=== PATIENT | male | born 1940 | race Caucasian/White ===

== ENCOUNTER 2016-03-05 18:35 | Inpatient (IN) ==
--- NOTE | 2016-03-05 18:58 | PROVIDER DOCUMENTATION ---
HPI-Neurological Disorder - General Chief Complaint: Fall Stated Complaint: Fall,Back Pain Time Seen by Provider: 03/05/16 18:40 Source: patient, family Allergies/Adverse Reactions: Patient Allergies Allergy/AdvReac Type Severity Reaction Status Date / Time No Known Allergies Allergy Verified 03/05/16 18:50 Home Medications: Digoxin 125 mcg PO DAILY 09/07/15 Levothyroxine [Synthroid] 200 microgm PO DAILY 09/07/15 Cholecalciferol (Vitamin D3) [D3-2000] 2,000 unit PO DAILY 09/15/15 Fenofibrate 40 mg PO DAILY 09/15/15 Fluticasone 50 Mcg Nasal [place] [Flonase] 2 spray DIMITRIS BID 09/15/15 Potassium Chloride 10 meq PO DAILY 09/15/15 Furosemide [Lasix] 40 mg PO DAILY 10/18/15 Pantoprazole [Protonix] 40 mg PO DAILY@0700 10/18/15 Lactulose 15 ml PO BID 11/12/15 Phenazopyridine [Pyridium] 100 mg PO TID 11/12/15 Solifenacin [Vesicare] 5 mg PO DAILY 11/12/15 Fesoterodine Fumarate [Toviaz] 8 mg PO DAILY 03/05/16 Pyridostigmine [Mestinon] 60 mg PO Q8HR 03/05/16 - History of Present Illness-Neuro Nature of Presenting Problem: 75 year old WM presents for the 2nd time in 3 days. per pt and who is primary caregiver, pt was found on the floor by . pt reports he put up his life chair in an attempt to walk and slid out of the chair onto the floor. reports she was unable to get him up so she contacted EMS. pt reports he is unable to take his medications because he feels confused, reports he is currently under the care of a neurologist and being evaluated for myasthenia gravis. Review of Systems - Adult - REVIEW OF SYSTEMS - ADULT Constitutional: reports: no symptoms reported. denies: chills, fever, fatique Eyes: reports: no symptoms reported. denies: discharge, decreased vision, eye pain, redness Ears, Nose, Mouth & Throat: reports: no symptoms reported. denies: ear discharge, ear pain, nose pain, loose teeth, throat pain, throat swelling Cardiovascular: reports: no symptoms reported. denies: chest pain, palpitations , syncope Respiratory: reports: no symptoms reported. denies: chronic cough, cough, shortness of breath, wheezing Gastrointestinal: reports: no symptoms reported. denies: abdominal pain, diarrhea, nausea, vomiting Genitourinary: reports: no symptoms reported. denies: dysuria, hematuria, urgency Musculoskeletal: reports: see HPI, neck pain. denies: bone pain, joint pain, joint swelling Integumentary: reports: no symptoms reported. denies: hives, itching, skin sores/ulcer Neurological: reports: see HPI, other (confusion). denies: ataxia, dizziness/ vertigo, headache/migraines, loss of balance, numbness, paresthesia, seizure, slurred speech, syncope Psychiatric: reports: no symptoms reported Endocrine: reports: no symptoms reported Hematologic/Lymphatic: reports: no symptoms reported Allergic/Immunologic: reports: no symptoms reported All Other Systems: Reviewed and Negative Past History - Adult - PAST MEDICAL HISTORY-ADULT Review of Records: reports: Old Records Reviewed, Nursing Assessment Review, Medications Reviewed, Social history reviewed & non-contributory. Major Childhood Illnesses: reports: denies history Cardiovascular: reports: A-Fib, CAD, HTN, pacemaker Respiratory: reports: sleep apnea Gastrointestinal: reports: denies history Obstetrical/Gynecological: reports: denies history Genitourinary: reports: chronic UTI's Musculoskeletal: reports: denies history Neurological: reports: CVA, TIA, other (myasthenia gravis) Psychiatric: reports: depression Endocrine/Immune: reports: Diabetes, thyroid disorder Diabetes Type: Type 2 Diabetes controlled by:: Insulin Dependent Other Conditions: reports: denies history - PRIOR SURGERIES/PROCEDURES Surgical/Procedure History: reports: appendectomy, cardiac stent, pacemaker, tonsillectomy, hernia repair - IMMUNIZATION STATUS Childhood Immunizations: See Nurse Assessment Flu Vaccine: See Nurse Assessment - FAMILY HISTORY Family History: reviewed, not pertinent - SOCIAL HISTORY Smoking: denies Substance Use: none/never Alcohol Use Frequency: never Physical Exam- Neurological - Physical Exam-Neuro Initial Vital Signs Reviewed: Yes General Appearance: appears well, alert, no apparent distress, lethargic. negative: slow to respond, obtunded, combative Eye Exam: bilateral eye: normal inspection, PERRL, EOMI HENMT: normocephalic/atraumatic, moist mucous membranes, normal ENT inspection, TMs normal, pharynx normal. negative: TM abnormal, TM obscurred by cerumen, frontal tenderness, maxillary tenderness Head Injury: no evidence of injury. negative: active bleeding, Andrea's Sign, contusions, ecchymosis, flap, lacerations, raccoon eyes, swelling, tenderness Neck: full range of motion, supple, normal inspection, C-spine tenderness. negative: non-tender, limited range of motion, tender lateral, tender midline Respiratory: chest non-tender, lungs clear, normal breath sounds, no pleuratic chest pain, no respiratory distress, no accessory muscle use. negative: respiratory distress, decreased breath sounds, accessory muscle use, crackles, rales, rhonchi, stridor, wheezing Cardiovascular: normal peripheral pulses, regular rate, rhythm, no edema, no gallop, no JVD, no murmur Abdominal Exam: normal bowel sounds, non tender, soft, no organomegaly, no pulsatile mass. negative: distended, guarding, rigid, rebound, tenderness, McBurney's point tenderness, Wheeler's sign, obturator sign, psoas, Rovsing's sign Lymphatic: no adenopathy Peripheral Pulses: radial (R): 3+, radial (L): 3+, dorsalis-pedis (R): 3+, dorsalis-pedis (L): 3+ Extremity: normal range of motion, non-tender, normal gait, normal inspection, no pedal edema, no calf tenderness, normal capillary refill, pelvis stable. 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 negative: abnormal eye position , abnormal gag reflex, abnormal pupil position, abnormal speech, facial asymmetry, facial droop, facial paresthesias, facial weakness, gaze palsy, tongue deviation to R, tongue deviation to L Coordination/Gait: normal finger to nose, normal gait, negative Romberg's sign, abnormal gait (at baseline, reports he walks with a walker.) Motor/Sensory: no motor deficit, no sensory deficit, no pronator drift, negative Babinski's sign. negative: weak motor strength RUE, weak motor strength LUE, weak motor strength RLE, weak motor strength LLE Neurologic: grossly normal, no motor/sensory deficits, abnormal gait. negative : aphasia, EOM palsy, facial droop, focal weakness, motor weakness, sensory deficit Integumentary: normal color, normal turgor, warm/dry. negative: petechiae, purpura, rash Psych/Mental Status: AL, normal mood/affect, normal thought content, normal thought process, oriented x 3 - Glascow Coma Scale Best Eye Response: (4) open spontaneously Best Verbal Response: (4) confused conversation Best Motor Response: (6) obeys commands Total Glascow Score: 14 Progress - PLAN OF CARE/RESULTS Progress/Plan/Lab Results: Vital Signs - 24 hr 03/05/16 18:37 Pulse Rate 90 Respiratory 18 Rate Blood Pressure 164/105 O2 Sat by Pulse 95 Oximetry Orders Category Date Time Status Cardiac Monitoring DIRECTED Care 03/05/16 18:55 Active Finger Stick Blood Sugar (ED) DIRECTED Care 03/05/16 18:55 Active Saline Loc NOW Care 03/05/16 18:55 Active HEAD/C-SPINE W/O CONTRAST [CT] Stat Exams 03/05/16 18:57 Draft cxr [CHEST-2 VIEWS] [RAD] Stat Exams 03/05/16 18:56 Taken ABG [RESP] Routine Lab 03/05/16 19:45 Completed ALCOHOL BLOOD Stat Lab 03/05/16 20:08 Completed CBC WITH ELECTRONIC DIFF [HEME] Stat Lab 03/05/16 20:08 Completed CK PROFILE [SP CHEM] Stat Lab 03/05/16 20:08 Completed COMPREHENSIVE METABOLIC PANEL [CHEM] Stat Lab 03/05/16 20:08 Completed DIGOXIN [TDM] Stat Lab 03/05/16 20:08 Received PROTIME WITH INR [COAG] Stat Lab 03/05/16 20:08 Completed PTT [COAG] Stat Lab 03/05/16 20:08 Completed TROPONIN T Stat Lab 03/05/16 20:08 Completed URINALYSIS W/POSS RFLX CULT [URINALYSIS] Stat Lab 03/05/16 21:11 Completed URINE DRUG SCREEN Stat Lab 03/05/16 21:11 Completed Pulse Oximetry Stat Oth 03/05/16 18:55 Active EKG [EKG] Stat Ther 03/05/16 18:55 Ordered Laboratory Tests 03/05/16 03/05/16 03/05/16 19:45 20:08 20:08 WBC 14.88 H RBC 5.83 Hgb 17.7 Hct 49.9 MCV 85.6 MCH 30.4 MCHC 35.5 RDW Std Deviation 14.3 Plt Count 133 MPV 11.9 H Immature Gran % (Auto) 0.7 H Neut % (Auto) 85.6 H Lymph % (Auto) 7.1 L Anson % (Auto) 6.2 Eos % (Auto) 0.1 Baso % (Auto) 0.3 Immature Gran # (Auto) 0.11 H Neut # 12.74 H Lymph # 1.06 L Anson # 0.92 H Eos # 0.01 Baso # 0.04 PT INR PTT (Actin FS) Specimen Type ARTERIAL Sample Site R BRACHIAL pH 7.47 H pCO2 34 L pO2 86 HCO3 26.1 H Base Excess 1.7 Oxyhemoglobin 94.4 L ABG O2 Sat (Calculated) 23.2 H ABG O2 Saturation 98.1 ABG Carboxyhemoglobin 2.10 ABG Methemoglobin 1.7 H Ranjit Test YES A-a O2 Difference 71.0 Total Hemoglobin 17.5 H Lactate 1.20 Liter Flow 2.0 Blood Gas Modality CANNULA FiO2 % 28.0 Sodium Potassium Chloride Carbon Dioxide Anion Gap BUN Creatinine Estimated GFR/1.73 m2 BUN/Creatinine Ratio Glucose Calculated Osmolality Calcium Total Bilirubin AST ALT Alkaline Phosphatase Creatine Kinase Troponin T Total Protein Albumin Globulin Albumin/Globulin Ratio Urine Source Urine Color Urine Turbidity Urine pH Ur Specific [place] Urine Protein Ur Glucose (Stick) Ur Ketones (Stick) Urine Blood Urine Nitrite Urine Bilirubin Urobilinogen Dipstick Urine Leukocytes Urine WBC (Auto) Urine RBC (Auto) U Epithel Cells (Auto) Urine Bacteria (Auto) Urine Opiates Screen Ur Oxycodone Screen Ur Methadone, Qual Ur Barbiturates Screen Ur Phencyclidine Scrn Ur Amphetamines Screen U Benzodiazepines Scrn Urine Cocaine Screen U Cannabinoids Screen Plasma/Serum Ethyl Alc 03/05/16 03/05/16 03/05/16 20:08 20:08 20:08 WBC RBC Hgb Hct MCV MCH MCHC RDW Std Deviation Plt Count MPV Immature Gran % (Auto) Neut % (Auto) Lymph % (Auto) Anson % (Auto) Eos % (Auto) Baso % (Auto) Immature Gran # (Auto) Neut # Lymph # Anson # Eos # Baso # PT 17.5 H INR 1.64 PTT (Actin FS) 31.2 Specimen Type Sample Site pH pCO2 pO2 HCO3 Base Excess Oxyhemoglobin ABG O2 Sat (Calculated) ABG O2 Saturation ABG Carboxyhemoglobin ABG Methemoglobin Ranjit Test A-a O2 Difference Total Hemoglobin Lactate Liter Flow Blood Gas Modality FiO2 % Sodium 136 Potassium 4.0 Chloride 96 L Carbon Dioxide 21 L Anion Gap 19 BUN 15 Creatinine 1.0 Estimated GFR/1.73 m2 > 60 BUN/Creatinine Ratio 15 Glucose 266 H Calculated Osmolality 282 Calcium 9.6 Total Bilirubin 2.76 H AST 13 ALT 11 Alkaline Phosphatase 186 H Creatine Kinase Troponin T < 0.010 Total Protein 7.1 Albumin 3.7 Globulin 3.4 Albumin/Globulin Ratio 1.1 Urine Source Urine Color Urine Turbidity Urine pH Ur Specific [place] Urine Protein Ur Glucose (Stick) Ur Ketones (Stick) Urine Blood Urine Nitrite Urine Bilirubin Urobilinogen Dipstick Urine Leukocytes Urine WBC (Auto) Urine RBC (Auto) U Epithel Cells (Auto) Urine Bacteria (Auto) Urine Opiates Screen Ur Oxycodone Screen Ur Methadone, Qual Ur Barbiturates Screen Ur Phencyclidine Scrn Ur Amphetamines Screen U Benzodiazepines Scrn Urine Cocaine Screen U Cannabinoids Screen Plasma/Serum Ethyl Alc 03/05/16 03/05/16 03/05/16 20:08 21:11 21:11 WBC RBC Hgb Hct MCV MCH MCHC RDW Std Deviation Plt Count MPV Immature Gran % (Auto) Neut % (Auto) Lymph % (Auto) Anson % (Auto) Eos % (Auto) Baso % (Auto) Immature Gran # (Auto) Neut # Lymph # Anson # Eos # Baso # PT INR PTT (Actin FS) Specimen Type Sample Site pH pCO2 pO2 HCO3 Base Excess Oxyhemoglobin ABG O2 Sat (Calculated) ABG O2 Saturation ABG Carboxyhemoglobin ABG Methemoglobin Ranjit Test A-a O2 Difference Total Hemoglobin Lactate Liter Flow Blood Gas Modality FiO2 % Sodium Potassium Chloride Carbon Dioxide Anion Gap BUN Creatinine Estimated GFR/1.73 m2 BUN/Creatinine Ratio Glucose Calculated Osmolality Calcium Total Bilirubin AST ALT Alkaline Phosphatase Creatine Kinase 84 Troponin T Total Protein Albumin Globulin Albumin/Globulin Ratio Urine Source CLEAN CATCH Urine Color YELLOW Urine Turbidity CLEAR Urine pH 5.5 Ur Specific [place] 1.024 Urine Protein 100 A Ur Glucose (Stick) 100 A Ur Ketones (Stick) TRACE A Urine Blood NEGATIVE Urine Nitrite NEGATIVE Urine Bilirubin SMALL A Urobilinogen Dipstick 2 A Urine Leukocytes NEGATIVE Urine WBC (Auto) <10 Urine RBC (Auto) <10 U Epithel Cells (Auto) <10 Urine Bacteria (Auto) NEGATIVE Urine Opiates Screen NONE DETECTED Ur Oxycodone Screen NONE DETECTED Ur Methadone, Qual NONE DETECTED Ur Barbiturates Screen NONE DETECTED Ur Phencyclidine Scrn NONE DETECTED Ur Amphetamines Screen NONE DETECTED U Benzodiazepines Scrn NONE DETECTED Urine Cocaine Screen NONE DETECTED U Cannabinoids Screen NONE DETECTED Plasma/Serum Ethyl Alc Received a phone call from Valentino Baum reporting they were going to recommend admission to [facility] to have the patient followed up by his neurologist. I then contacted the transfer center at [facility] and they deferred admission to [facility] because the patient is a patient of Dr. Elaine and his patients are not admitted to [facility] hospital. - REASSESSMENT Reassessment #1 Time Reassessed: 22:00 Status: unchanged (pt remains weak, unable to sit forward, Dr. Patel to bedside for admission evaluation.) - XRAY 1 XRAY Study: Chest Impression: Abnormal (per Dr. Patel) - CT/MRI 1 CT Study: Head Impression: Normal (Head: No intracranial abnormality. C-spine: no acute disease or change from prior per Dr. Levy.) - CONSULTS/PCP/HOSPITALIST Notification #1 *Consult/PCP/Hospitalist*: dr. Pulliam Time Discussed: 22:23 Consult Disposition: Will see in ED, Admit #2 Consult: [facility] hospitalist Consult Disposition: other (will call back, would like to admit but is not sure if neurology is available, will call back with definitive answer.) Departure - Departure Time of Disposition Order: 22:21 DIAGNOSIS: Weakness, Falling episodes, Frequent falls Disposition: ADMITTED INPATIENT 09 Certified Medical Emergency: Emergent Condition: Stable Attestation - Physician/ Mid-level Attestation Patient care was provided by Mid-level provider (PRE K SPECIAL EDUCATION TEACHER/PA):: Yes Mid-level provider:: Ledy Woodall Mid-level documentation review:: The Mid-level provider documentation, treatment plan and medical decision making was reviewed by the physician who agrees with all treatment and medical decision making by the MLP.
[2016-03-05 19:49] LABS: ALLEN TEST YES; BE 1.7 mmoll (-3.0-3.0); BLOOD TYPE ARTERIAL; DRAW SITE R BRACHIAL; METHB 1.7 % (0.0-1.5); O2(CT) 23.2 mL/dL (15.0-23.0); PCO2(98.6) 34 mmHg (35-45); PO2(98.6) 86 mmHg (60-100); SAMPLE BLOOD; SAO2 98.1 % (95.0-100.0); THB 17.5 g/dL (11.5-17.4); pH(98.6) 7.47 (7.35-7.45)
[2016-03-05 19:51] LABS: MODALITY CANNULA
[2016-03-05 20:44] LABS: BASO% 0.3 % (0.0-0.8); EOS# 0.01 X1000 (0.0-0.7); EOS% 0.1 % (0.0-10.0); HEMATOCRIT 49.9 % (42.0-52.0); HEMOGLOBIN 17.7 g/dL (14.0-18.0); IMM GRAN# 0.11 X1000 (0.0-0.04); IMM GRAN% 0.7 % (0.0-0.5); LYMPH# 1.06 X1000 (1.2-3.4); LYMPH% 7.1 % (20.5-51.1); MANUAL DIFF NEEDED? NO; MCH 30.4 PG (27-31); MCHC 35.5 g/dL (33-37); MCV 85.6 FL (81-99); MONO# 0.92 X1000 (0.11-0.59); MONO% 6.2 % (1.7-9.3); MPV 11.9 FL (7.4-10.4); NEUT% 85.6 % (42.2-75.2); PLT 133 X1000 (130-400); RBC 5.83 XMIL (4.7-6.1)
[2016-03-05 20:51] LABS: INR 1.64; PROTIME 17.5 Seconds (9.2-11.7); PTT 31.2 Seconds (22.0-36.0)
--- NOTE | 2016-03-05 20:51 | Diag Imaging Result Document ---
PROCEDURE NAME: HEAD/C-SPINE W/O CONTRAST - 03/05/[address]: A CT dose reduction protocol was used. COMPARISON: 11/15/2015. FINDINGS: Stable mild atrophy and chronic microvascular disease. No intracranial mass or hemorrhage. The skull is intact. The sinuses, mastoids, and middle ears are clear. There is a small superior scalp contusion. IMPRESSION: No intracranial injury. CT CERVICAL SPINE: A CT dose reduction protocol was used. COMPARISON: 11/14/15. FINDINGS: Alignment is anatomic. Stable multilevel disk degeneration and facet degeneration. No fracture or subluxation. IMPRESSION: No acute disease or change from prior. [facility]
[2016-03-05 21:01] LABS: AGAP 19; ALBUMIN 3.7 g/dL (3.5-5.0); ALKALINE PHOSPHATASE 186 U/L (32-122); BUN 15 mg/dL (8-22); CALCIUM 9.6 mg/dL (8.8-10.2); CHLORIDE 96 mmol/L (98-107); COSMO 282; GOT 13 U/L (10-34); GPT 11 U/L (10-44); SODIUM 136 mmol/L (136-145); TCO2 21 mmol/L (25-35); TOTAL BILIRUBIN 2.76 mg/dL (0.20-1.00); TOTAL PROTEIN 7.1 g/dL (6.3-8.3)
[2016-03-05 21:19] LABS: URINE CULTURE NEEDED? NO; URINE MICRO REVIEW NEEDED? NO; URINE SOURCE CLEAN CATCH
[2016-03-05 21:25] LABS: BILIRUBIN URINE SMALL (NEGATIVE); BLOOD URINE NEGATIVE (NEGATIVE); COLOR YELLOW; GLUCOSE URINE 100 mg/dL (NEGATIVE); LEUKOCYTES URINE NEGATIVE (NEGATIVE); NITRITE URINE NEGATIVE (NEGATIVE); PH URINE 5.5; PROTEIN URINE 100 mg/dL (NEGATIVE); SP GRAVITY URINE 1.024; TURBIDITY URINE CLEAR (CLEAR); UR EPITHELIAL CELLS <10 /HPF (<10); URINE BACTERIA NEGATIVE /HPF; URINE RBC <10 /HPF (<10); URINE WBC <10 /HPF (<10); UROBILINOGEN URINE 2 mg/dL (NORMAL)
[2016-03-05 21:38] LABS: UR AMPHETAMINES QUAL NONE DETECTED (NONE DETECT); UR BARBITUATES QUAL NONE DETECTED (NONE DETECT); UR BENZODIAZEPIN QUAL NONE DETECTED (NONE DETECT); UR CANNABINOIDS QUAL NONE DETECTED (NONE DETECT); UR COCAINE QUAL NONE DETECTED (NONE DETECT); UR METHADONE QUAL NONE DETECTED (NONE DETECT); UR OPIATES QUAL NONE DETECTED (NONE DETECT); UR OXYCODONE QUAL NONE DETECTED (NONE DETECT); UR PCP QUAL NONE DETECTED (NONE DETECT)
[2016-03-06] MEDS ORDERED: TYLENOL PO PRN (02:02)
[2016-03-06] MEDS: ZOSYN 3.375 GM/NS 50 ML IV SCH ×4 (04:02→21:55)
[2016-03-06] MEDS: NS 1,000 ML IV SCH (04:02)
[2016-03-06 05:10] LABS: MANUAL DIFF NEEDED? NO
[2016-03-06 05:13] LABS: BASO% 0.2 % (0.0-0.8); EOS# 0.12 X1000 (0.0-0.7); EOS% 0.9 % (0.0-10.0); HEMATOCRIT 45.8 % (42.0-52.0); HEMOGLOBIN 16.2 g/dL (14.0-18.0); IMM GRAN% 0.8 % (0.0-0.5); LYMPH# 2.11 X1000 (1.2-3.4); LYMPH% 16.4 % (20.5-51.1); MCH 30.4 PG (27-31); MCHC 35.4 g/dL (33-37); MCV 85.9 FL (81-99); MONO# 1.38 X1000 (0.11-0.59); MONO% 10.7 % (1.7-9.3); MPV 11.4 FL (7.4-10.4); PLT 134 X1000 (130-400); RBC 5.33 XMIL (4.7-6.1)
[2016-03-06 05:29] LABS: AGAP 13; BUN 17 mg/dL (8-22); CALCIUM 9.3 mg/dL (8.8-10.2); CHLORIDE 99 mmol/L (98-107); COSMO 283; POTASSIUM 3.5 mmol/L (3.5-5.1); SODIUM 138 mmol/L (136-145); TCO2 26 mmol/L (25-35)
[2016-03-06] MEDS: HUMULIN R SUBQ SCH ×4 (06:20→21:55)
[2016-03-06] MEDS: PROTONIX PO SCH (06:20)
--- NOTE | 2016-03-06 09:08 | HISTORY AND PHYSICAL ---
CHIEF COMPLAINT: Weakness and altered mental state. HISTORY OF PRESENTING ILLNESS: This is a 75-year-old white male with multiple chronic comorbidities. Discharged the last time from this institution due to generalized weakness. On urinary retention. Since then, has been seeing a neurologist in [place] who is doing a workup for myasthenia gravis. In fact, apparently he picked up his Mestinon from the pharmacy and started taking it 60 mg every 8 hours instead of starting at a low dose and increasing the dose over a week or 2 as apparently was directed by his neurologist. says that over the last 3 days he has been falling a lot. He seems to be very weak and confused. As a matter of fact, he was looking at snakes on the floor when he fell in his kitchen earlier tonight. He is having hallucinations. says other than that, he is in his usual state of health. He has multiple chronic, advanced comorbidities including diabetes mellitus type 2, hypothyroidism, osteoarthrosis, apparently dementia, and failure to thrive. He lives home with his , his primary caregiver. He has a pacemaker in situ and has chronic atrial fibrillation. Patient, however, cannot provide a history today. He is very confused. He seems tired and dehydrated. Electronic medical records reviewed and discussed the case with the ER team. REVIEW OF SYSTEMS: A 14 point review of systems unable to be obtained secondary to patient's altered mental state. HOME MEDICATIONS: Levemir 40 units subcutaneously daily, Levemir 30 units subcutaneously at night, vitamin D 2000 units orally daily, Digoxin 125 mcg p.o. daily, fenofibrate 40 mg p.o. daily, Proscar 5 mg p.o. daily, fluticasone 2 sprays intranasal twice a day, Lasix 40 mg p.o. daily, Icar-C 1 tablet oral twice a day, lactulose 50 mg oral twice a day, Synthroid 200 mcg p.o. daily, lisinopril 20 mg p.o. daily, Nadolol 20 mg p.o. daily, Protonix 40 mg p.o. daily, Pyridium 100 mg p.o. 3 times a day, potassium chloride 10 mEq p.o. daily, VESIcare 5 mg p.o. daily, Aldactone 25 mg p.o. daily, magnesium oxide 400 mg p.o. twice a day. ALLERGIES: No known drug allergies. PAST MEDICAL HISTORY: Significant for chronic atrial fibrillation, CAD, hypertension, pacemaker in situ, sleep apnea, chronic urinary tract infections, old CVA, TIA, rule out myasthenia gravis diabetes mellitus type 2 on long-term insulin therapy, hypothyroidism, fecal impaction, generalized weakness, possibly dementia. PAST SURGICAL HISTORY: Includes appendectomy, cardiac stents, pacemaker, tonsillectomy, hernia repair. FAMILY HISTORY: Hypertension, heart disease. SOCIAL HISTORY: No alcohol. No tobacco. No drugs. Lives home with his . is primary caregiver. PHYSICAL EXAMINATION: GENERAL: A pleasant elder. Seems dry, dehydrated, in no distress. VITAL SIGNS: Pulse 90, respiratory rate 18, blood pressure 160/100, saturating 95% on room air, temperature 98. Weight is 250 pounds. His height is 6 feet 3 inches. HEENT: Head is atraumatic, normocephalic. Pupils are reactive to light. Dry mucous membranes. No coryza. No rhinorrhea. No sore throat. Mouth is clear. NECK: Supple. No crepitus. CHEST: Nontender. LUNGS: Clear bilaterally. Prolonged expiratory phase. No rales. No crackles. No wheezes. No crepitus. HEART: S1, S2 present. Irregularly irregular rate and rhythm. Pacemaker in situ. Telemetry atrial fibrillation. ABDOMEN: Soft, nontender, nondistended. Bowel sounds present. EXTREMITIES: No edema. No calf tenderness. Poor muscle mass. Chronic osteoarthritic changes throughout. NEUROLOGIC: He is awake, somewhat alert. Follows simple commands. Seems disoriented. Poor exam secondary to patient's confusion. He, however, moves 4 extremities at will. Muscle strength is 5/5 in 4 limbs. PSYCH: Odd affect. LABORATORY: White blood cell count of 14.8 with a hemoglobin of 17.7, hematocrit of 49.9, platelets of 133,000, with neutrophil percent of 85.6, and total neutrophil of 12.7. PT of 17.5. INR 1.64. ABG shows a pH of 7.47 with a pCO2 of 34 and PO2 86 on nasal cannula. Sodium 136, potassium 4, chloride 96, carbon dioxide 21, anion gap 19, BUN 15, creatinine 1 , glucose 266 osmolality 282. Last hemoglobin A1c on March 03, 2016 9.3. Total bilirubin 2.76 with an AST of 13, ALT of 11, alkaline phosphatase 186. Urinalysis shows 100 protein, 100 glucose, trace of ketones, and small bilirubin. It is negative for white blood cells, RBCs, or epithelial cells. Toxicology shows digoxin of 0.4. CT of head and cervical spine does not show any acute fractures. He hip/pelvis x-ray: No acute fractures. Chest x-ray: COPD changes. No infiltrates. ASSESSMENT AND PLAN: 1. Encephalopathy likely infectious versus toxic. 2. Frequent falls. 3. Leukocytosis. 4. Abnormal chest x-ray. 5. Uncontrolled diabetes type 2, on long-term insulin therapy. 6. Diabetic neuropathy. 7. Chronic atrial fibrillation. 8. Pacemaker in situ. 9. CAD. 10. History of cardiac stents. 11. Failure to thrive. 12. Possible myasthenia gravis. Been taking Mestinon over the last 3 days. DISCUSSION: Patient with multiple chronic and advanced comorbidities, admitted with altered mental state, hallucinations, abnormal chest x-ray, leukocytosis. Though has history of chronic recurrent urinary tract infections, this time urine seems to be clear. He is very confused and unable to provide any history. I fear he might have aspirated, though he is not in respiratory distress at this time. We will admit for further evaluation and treatment. I will panculture and start him on IV Zosyn for likely aspiration pneumonia. Will hold Mestinon. Per report, was taking more than indicated by neurologist. Consult to house neurologist, Dr. Sevilla. Fall, aspiration precautions. Serial neuro checks. Blood pressure and blood sugar control. Resume home medications as tolerated. Mechanical DVT prophylaxis. No Lovenox or heparin for dvt prophylaxis due to recent falls, high risk for bleeding. manager of photography for possible placement. The rest of plan of care as per clinical development. [facility]
--- NOTE | 2016-03-06 09:37 | Diag Imaging Result Document ---
PROCEDURE NAME: CHEST-PORTABLE - 03/06/2016 PORTABLE CHEST X-RAY, 03/06/2016: COMPARISON: 03/05/2016. FINDINGS: Stable pacemaker and cardiomegaly. There is some slightly increasing, patchy infiltrate in the left lung base, in the left infrahilar region. No pneumothorax or large effusion. IMPRESSION: New, small indeterminate airspace opacity in the left lung base.
[2016-03-06] MEDS: TOVIAZ PO SCH (09:40)
[2016-03-06] MEDS: PRINIVIL PO SCH (09:40)
[2016-03-06] MEDS: VITAMIN D PO SCH (09:40)
[2016-03-06] MEDS: ICAR-C PO SCH ×2 (09:40→21:55)
[2016-03-06] MEDS: TRICOR PO SCH (09:40)
[2016-03-06] MEDS: ALDACTONE PO SCH (09:40)
[2016-03-06] MEDS: PYRIDIUM PO SCH ×3 (09:40→17:00)
[2016-03-06] MEDS: VESICARE PO SCH (09:40)
[2016-03-06] MEDS: CORGARD PO SCH (09:41)
[2016-03-06] MEDS: PROSCAR PO SCH (09:41)
[2016-03-06] MEDS: LASIX PO SCH (09:41)
[2016-03-06] MEDS: MAG-OX PO SCH ×2 (09:41→21:55)
[2016-03-06] MEDS: LANOXIN PO SCH (09:41)
[2016-03-06] MEDS: SYNTHROID PO SCH (09:41)
[2016-03-06] MEDS: KLOR-CON PO SCH (09:41)
[2016-03-06] MEDS: LACTULOSE PO SCH ×2 (09:42→21:55)
[2016-03-06] MEDS: FLONASE NAS SCH ×2 (09:42→21:54)
--- NOTE | 2016-03-06 11:13 | Diag Imaging Result Document ---
PROCEDURE NAME: CHEST-2 VIEWS - 03/05/2016 CHEST X-RAY 2 VIEWS, 03/05/2016: COMPARISON: 11/22/2015. FINDINGS: Stable pacemaker. Stable cardiomegaly. No focal infiltrates, pneumothorax, or pleural effusion. IMPRESSION: Cardiomegaly. No acute disease.
--- NOTE | 2016-03-06 15:22 | Diag Imaging Result Document ---
PROCEDURE NAME: WRIST COMPLETE LEFT - 03/06/2016 LEFT WRIST 3 VIEWS: COMPARISON: None. FINDINGS: There is no fracture or dislocation. There is advanced degeneration at the 1st carpometacarpal joint. There is also severe peripheral vascular disease of all the arteries of the wrist and hand. IMPRESSION: No acute disease.
[2016-03-06] MEDS ORDERED: LEVEMIR SUBQ SCH (21:00)
[2016-03-07] MEDS: ZOSYN 3.375 GM/NS 50 ML IV SCH ×4 (02:47→20:38)
[2016-03-07] MEDS: NS 1,000 ML IV SCH ×4 (02:49→20:38)
[2016-03-07] MEDS: HUMULIN R SUBQ SCH ×4 (06:09→21:44)
[2016-03-07] MEDS: PROTONIX PO SCH (06:10)
[2016-03-07 07:03] LABS: BASO% 0.3 % (0.0-0.8); EOS# 0.15 X1000 (0.0-0.7); HEMATOCRIT 47.6 % (42.0-52.0); HEMOGLOBIN 16.4 g/dL (14.0-18.0); LYMPH% 17.3 % (20.5-51.1); MANUAL DIFF NEEDED? NO; MCH 29.9 PG (27-31); MCHC 34.5 g/dL (33-37); MCV 86.9 FL (81-99); MONO# 1.74 X1000 (0.11-0.59); MONO% 12.1 % (1.7-9.3); MPV 11.3 FL (7.4-10.4); NEUT% 69.3 % (42.2-75.2); PLT 164 X1000 (130-400); RBC 5.48 XMIL (4.7-6.1)
[2016-03-07 07:16] LABS: CALCIUM 9.4 mg/dL (8.8-10.2); POTASSIUM 3.3 mmol/L (3.5-5.1)
[2016-03-07] MEDS: FLONASE NAS SCH ×2 (09:30→21:38)
[2016-03-07] MEDS: ALDACTONE PO SCH (09:31)
[2016-03-07] MEDS: PYRIDIUM PO SCH ×3 (09:31→17:40)
[2016-03-07] MEDS: VITAMIN D PO SCH (09:31)
[2016-03-07] MEDS: SYNTHROID PO SCH (09:31)
[2016-03-07] MEDS: TOVIAZ PO SCH (09:31)
[2016-03-07] MEDS: LACTULOSE PO SCH ×2 (09:31→23:03)
[2016-03-07] MEDS: ICAR-C PO SCH ×2 (09:32→23:04)
[2016-03-07] MEDS: KLOR-CON PO SCH (09:32)
[2016-03-07] MEDS: LASIX PO SCH (09:32)
[2016-03-07] MEDS: LANOXIN PO SCH (09:32)
[2016-03-07] MEDS: TRICOR PO SCH (09:32)
[2016-03-07] MEDS: CORGARD PO SCH (09:32)
[2016-03-07] MEDS: MAG-OX PO SCH ×2 (09:32→23:04)
[2016-03-07] MEDS: PRINIVIL PO SCH (09:32)
[2016-03-07] MEDS: VESICARE PO SCH (09:32)
[2016-03-07] MEDS: PROSCAR PO SCH (09:32)
[2016-03-07] MEDS: LEVEMIR SUBQ SCH ×2 (09:59→21:51)
--- NOTE | 2016-03-07 15:52 | CONSULTATION ---
DATE OF CONSULTATION: 03/07/2016 HISTORY OF PRESENT ILLNESS: Mr. Valadez was admitted again to the hospital in the last few days. History from his attentive is that he seemed more sluggish, sometimes not as alert, more slurred speech, more unsteady gait. She had difficult time getting him to the car to bring him here. Overall, she believes his appearance is similar to the way he has presented in the past prior to hospitalizations here in recent months, but he may be worse this time. Still, she has not noticed any focal or lateralized weakness. He seems weak all over. Since his last discharge about 3 months ago, he spent some time in rehab, seemed stable and was home. He had seen Dr. Elaine for neurology management in [place] recently. reports workup which sounds like EMG and there is apparent question of myasthenia or myasthenic syndrome. He was started on pyridostigmine with advice to begin at very low dose, part of a 60 mg tablet. believes that he took 1 whole 60 mg tablet per dose and she thinks he had only had a few doses. She did not notice any improvement in his gait then. He took this medicine on his own and she is not certain when he took the doses and she is not absolutely certain how much he took with each dose. He had some outpatient lab work ordered, including autoantibody profile. is not certain whether cholinesterase antibody titer has been done. They have followup with Dr. Elaine within the next few weeks. MEDICINE LIST PRIOR TO THIS ADMISSION: Toviaz, spironolactone, VESIcare, KCl, phenazopyridine, pantoprazole, nadolol, magnesium oxide, lisinopril, thyroid, lactulose, Icar C, insulin, furosemide, fluticasone nasal spray, finasteride, fenofibrate, digoxin, cholecalciferol. believes he takes medicines as directed, but admits the lengthy list raises some questions as to whether not he accomplishes that consistently without mistakes. DIAGNOSTICS: Workup this admission includes labs showing WBC count 14,000, blood sugars in the 200s, urine drug screen all negative. Noncontrast CT of the head was unremarkable and unchanged compared to previous scans. PHYSICAL EXAMINATION: Vital signs: He has been afebrile. His systolic blood pressures have been 160s-180s this admission. Neurologic: Mr. Valadez is supine, lethargic, alert when I kept him involved in conversation with vigorous stimulation. His speech is dysarthric and a little bit feeble, but easily understood. There is no definite language error on brief bedside testing. I did not test his cognitive function. He has full extraocular movements. Visual rice are full tested grossly by confrontational finger counting. He can hear. Facial motility is symmetric. Tongue is midline. Shoulder shrug is good bilaterally. He has good power in the arms. He had limited effort with motor testing in the legs. With coaxing and repeated testing, he was able to demonstrate at least 4/5 power throughout. Tone is equal in the limbs. Plantar response is silent bilaterally. Reflexes are absent at the knees and ankles. Plantar response is silent bilaterally. I did not ask him to stand or walk. He reports loss of light touch appreciation in a stocking pattern on very gross and brief testing. IMPRESSION: Lethargy, apparent global encephalopathy, uncertain neuromuscular diagnosis. I do not think we would see such dramatic change with pyridostigmine at the doses reported. He has an extensive medication list and I wonder if he might have made mistakes with medicines. I do not see anything in the lab work at this time to indicate major metabolic problem. His medicine list does not include anything that likely would be associated with intoxication or withdrawal syndrome. There is not report of head injury. Negative CT is reassuring. I do not think we need urgent imaging or other workup right now. We can attempt to get some records of recent evaluation in [place] tomorrow. For now, I would continue support as you are providing. No urgent suggestions. Thanks for asking me to see Mr. Valadez. [facility]
[2016-03-07 15:55] LABS: URINE MICRO REVIEW NEEDED? NO; URINE SOURCE CATH
[2016-03-07 16:09] LABS: BILIRUBIN URINE NEGATIVE (NEGATIVE); BLOOD URINE NEGATIVE (NEGATIVE); COLOR YELLOW; GLUCOSE URINE NEGATIVE (NEGATIVE); LEUKOCYTES URINE NEGATIVE (NEGATIVE); NITRITE URINE NEGATIVE (NEGATIVE); PROTEIN URINE NEGATIVE (NEGATIVE); SP GRAVITY URINE 1.015; TURBIDITY URINE CLEAR (CLEAR); UROBILINOGEN URINE NORMAL (NORMAL)
[2016-03-07 16:11] LABS: UR EPITHELIAL CELLS <10 /HPF (<10); URINE BACTERIA NEGATIVE /HPF; URINE RBC <10 /HPF (<10); URINE WBC <10 /HPF (<10)
--- NOTE | 2016-03-07 19:04 | PROGRESS NOTE ---
DATE: 03/07/2016 SUBJECTIVE: This patient is lying on the bed. He is not having any kind of respiratory distress. He is answering most of my questions. He is oriented in person and time. He is not oriented in place. He recognized his , he has generalized weakness. OBJECTIVE: Vital Signs: Temperature 97.6 degrees, pulse 59, respiratory rate 14, blood pressure 156/95, O2 saturation 96% on room air. HEENT: Head normocephalic. No trauma. PERRLA. Neck: Supple. No JVD. No masses. Chest: Clear to auscultation. No wheezing. No rales. Abdomen: Soft, nontender, nondistended. No hepatosplenomegaly. Positive bowel sounds. Cardiovascular: Regular rhythm and rate. No murmurs. No gallops. No rubs. Extremities: No edema. No clubbing. No cyanosis. Neurological: The patient is alert. He is oriented x2. He is not oriented in time, he is able to recognize his and he can explain what are the symptoms, he has generalized weakness. I would say upper and lower extremity 3/5. LABORATORY: WBC 14.4, hemoglobin 16.4, hematocrit 47.6, platelet 164,000. Sodium 138, potassium 3.3, chloride 97, bicarbonate 24, BUN 20, creatinine 1.2, glucose 220, hemoglobin A1c 9, calcium 9.4. ASSESSMENT AND PLAN: 1. Global encephalopathy, uncertain etiology, I am not sure if this is related to medication or any source of infection. So far, we do not have any laboratory findings that can tell us that this patient has an infection. Neurology Department evaluated this patient. We will try to get some records from [facility]. We will continue with general support. 2. Leukocytosis. This is about the same, I do not have any source of infection at this moment. 3. Uncontrolled diabetes. I increased the dose of his insulin medication, we will monitor. 4. Diabetes neuropathy, aware. Continue monitoring. 5. Chronic atrial fibrillation. This patient is not on anticoagulation at home and this could be related to his frequent falls. We will monitor. 6. Pacemaker in-situ. Aware. 7. History of coronary artery disease. This patient is not complaining of any chest pain at this moment. 8. Possible myasthenia gravis, this patient has been taking Mestinon over the last 3 days, we will ask for records in [facility] to corroborate this information.
[2016-03-07] MEDS ORDERED: QUELICIN ONE (19:35)
[2016-03-07] MEDS: AMIDATE ONE ×2 (19:44→19:45)
[2016-03-07] MEDS ORDERED: MORPHINE IV ONE (19:50)
[2016-03-07] MEDS ORDERED: ATIVAN IV ONE (19:51)
[2016-03-07 19:58] LABS: ALLEN TEST YES; BE 3.1 mmoll (-3.0-3.0); BLOOD TYPE ARTERIAL; DRAW SITE R BRACHIAL; METHB 1.5 % (0.0-1.5); O2(CT) 21.6 mL/dL (15.0-23.0); PCO2(98.6) 38 mmHg (35-45); PO2(98.6) 68 mmHg (60-100); SAMPLE BLOOD; SAO2 96.4 % (95.0-100.0); THB 16.6 g/dL (11.5-17.4); pH(98.6) 7.46 (7.35-7.45)
[2016-03-07 19:59] LABS: MODALITY CANNULA
[2016-03-07 20:07] LABS: HEMATOCRIT 48.2 % (42.0-52.0); HEMOGLOBIN 16.9 g/dL (14.0-18.0); MCH 29.8 PG (27-31); MCHC 35.1 g/dL (33-37); MPV 11.2 FL (7.4-10.4); PLT 219 X1000 (130-400); RBC 5.67 XMIL (4.7-6.1)
[2016-03-07 20:11] LABS: INR 1.22; PTT 30.9 Seconds (22.0-36.0)
[2016-03-07] MEDS ORDERED: DIPRIVAN 1% 100 ML ONE (20:14)
[2016-03-07 20:29] LABS: ALBUMIN 3.5 g/dL (3.5-5.0); CALCIUM 9.5 mg/dL (8.8-10.2); POTASSIUM 4.4 mmol/L (3.5-5.1); TOTAL BILIRUBIN 2.3 mg/dL (0.20-1.00); TOTAL PROTEIN 6.9 g/dL (6.3-8.3)
[2016-03-07 20:47] LABS: MANUAL DIFF NEEDED? YES
[2016-03-07 20:58] LABS: EOS 1 % (1-10); LYMPHS 19 % (21-51); MONO 4 % (1-9)
[2016-03-07 21:00] LABS: BASO% 0.3 % (0.0-0.8); EOS% 1.3 % (0.0-10.0); LYMPH% 17.4 % (20.5-51.1); MONO% 10.6 % (1.7-9.3); NEUT% 69.4 % (42.2-75.2)
[2016-03-07] MEDS ORDERED: SOLU-MEDROL IV SCH (21:00)
[2016-03-07 21:01] LABS: EOS# 0.23 X1000 (0.0-0.7); IMM GRAN# 0.18 X1000 (0.0-0.04); LYMPH# 3.03 X1000 (1.2-3.4); MONO# 1.85 X1000 (0.11-0.59)
[2016-03-07 21:11] LABS: ALLEN TEST YES; BE 4.3 mmoll (-3.0-3.0); BLOOD TYPE ARTERIAL; DRAW SITE R RADIAL; METHB 1.7 % (0.0-1.5); O2(CT) 23.9 mL/dL (15.0-23.0); PCO2(98.6) 35 mmHg (35-45); PO2(98.6) 342 mmHg (60-100); SAMPLE BLOOD; SAO2 100.1 % (95.0-100.0); SRATE 12 BPM; TVOL 700 mL
[2016-03-07 21:12] LABS: MODALITY VENTILATOR
--- NOTE | 2016-03-07 21:32 | PROGRESS NOTE ---
DATE: 03/07/2016 CHIEF COMPLAINT: Respiratory arrest. SUBJECTIVE: The patient is unresponsive at this time, agonally breathing in the process of being intubated. He was reportedly with his resting comfortably when he spontaneously stopped breathing. OBJECTIVE: Vital signs: Temperature 97.6, pulse 60 ventricular paced, respirations bag ventilation at this time, blood pressure remains stable 180/101, O2 saturation 90%, 90-92 % bag ventilation. HEENT: Head is atraumatic, normocephalic. Pupils equal, round reactive to light. Extraocular eye movements could not be tested as patient has received sedation for intubation. Neck: Supple. No JVD, no thyromegaly. Trachea is midline. Cardiovascular: Regular rate and rhythm. Patient is paced. S1, S2 appreciated. No murmurs, gallops, rubs. Lungs: Patient agonally breathing at this time. No rhonchi, wheezes or rales. Bag ventilation in process. Extremities: No clubbing, cyanosis, or edema. Neurological: Patient is obtunded and does move arms, does not follow commands at this time. Genitourinary: Gutierrez catheter in place draining dark urine. LABORATORY: ABG, pH 7.46, pCO2 38, PO2 68, bicarb 27.2. New CBC, CMP, urine drug screen is pending. ASSESSMENT AND PLAN: 1. Respiratory arrest uncertain etiology. The patient is being treated for generalized weakness, again of unknown etiology. He will be intubated and mechanically ventilated. Dr. Mcfarlane been consulted for vent management. Will sedate with Diprivan at this time per protocol. 2. Global encephalopathy of uncertain etiology. Neurology has been consulted. I spoke to Dr. Sevilla. He agrees with a CT scan, repeat labs. Otherwise supportive care at this point. 3. Leukocytosis. No clear source of infection. Will continue treatment with Zosyn. 4. Diabetes mellitus. Continue insulin. 5. Diabetic neuropathy. Aware. 6. Chronic atrial fibrillation. Aware. 7. Possible myasthenia gravis. Coordinating with neurology to rule this out. Patient was reportedly taking Mestinon over the last 3 days. We have not received [facility] records at this point. ADDITIONAL ORDERS AND INFORMATION: The patient was transferred to ICU. Will give Solu-Medrol 125 mg q.8. Further recommendations per patient clinical course. Dictated by MYESHA Jo for Narciso Pulliam MD Patient seen and evaluated by yenni herndon I agree with DERRELL Baum's plans. Patient intubated and sedated. Now on mechanical ventilatory support. says he had problems eating and she fed him apple sauce and pudding earlier today. Patient likely had aspirated. IV antibiotics. Steroid trial for presence of heavy rhonchi. Critically ill and unstable. Discussed with at length. Critically ill. Keep in ICU. Critical care time 29 min. Non including other separately billable procedures. MTDD
[2016-03-07] MEDS ORDERED: NS 1,000 ML IV ONE ×2 (21:43→22:39)
[2016-03-07] MEDS: SOLU-MEDROL IV SCH (22:15)
[2016-03-07] MEDS: PATIENT'S OWN MED LEFT EYE SCH (23:11)
--- NOTE | 2016-03-07 23:13 | CONSULTATION ---
DATE OF CONSULTATION: 03/07/2016 REQUESTING PHYSICIAN: Nraciso Pulliam MD REASON FOR CONSULTATION: Respiratory failure. HISTORY OF PRESENT ILLNESS: Mr. Valadez is a 75-year-old white male, with diabetes mellitus, prior tobacco history, who has had a progressive downhill course this year. The patient's reports he had a urinary tract infection in May of this year and has had several hospital admissions. He has had some weakness and some weight loss and underwent an evaluation in September. Carotid artery Dopplers at that time revealed no evidence of disease. Echocardiogram was also performed which revealed no evidence of significant valvular disease. The patient has known coronary artery disease, which has been managed medically. He was recently evaluated by a neurologist in [place] and by report was being tested for myasthenia gravis. He was given a prescription for Mestinon. The notes indicate he took several doses, but his reports that she counted all the pills and no pills are missing. He did recently undergo a cataract surgery and has been on medications for approximately 1 week for that process. The patient fell and was brought to the emergency room on 03/06. He was having some hallucinations and confusion and was brought to the emergency room. CT scan of the head revealed no intracranial hemorrhage injury. This evening, patient's mental status declined and he had evidence of agonal respirations and was intubated by the ER physician. PAST MEDICAL HISTORY: 1. Diabetes mellitus. 2. Chronic atrial fibrillation. 3. Coronary artery disease. 4. History of CVA. 5. Status post pacemaker placement. 6. Hypothyroidism. 7. Status post appendectomy. 8. Status post hernia repair. 9. Status post recent cataract surgery. SOCIAL HISTORY: Patient's reports he smoked a pipe for approximately 40 years but none recently. No alcohol use. 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 FAMILY HISTORY: Notable for coronary artery disease and hypertension. REVIEW OF SYSTEMS: Cannot be obtained. PHYSICAL EXAMINATION: General: Reveals a chronically ill-appearing, white male, on mechanical ventilation. Vital signs: Blood pressure is 84/60 and he is currently receiving volume resuscitation. Heart rate 60, respiratory rate 12, and unlabored, oxygen saturation 98%. HEENT: Pupils are equal and reactive. Oropharynx is dry. Neck: Supple. Chest: Reveals good air entry bilaterally. Cardiac: Distant heart sounds. Normal S1, normal S2. Abdomen: Soft and without hepatosplenomegaly. Extremities: Without edema. LABORATORY STUDIES: Arterial blood gas prior to intubation, pH 7.46, pCO2 of 38, PO2 of 68, on 2 L per nasal cannula. Arterial blood gas following intubation, pH 7.50, pCO2 of 35, PO2 of 342, white blood count 17.7, hemoglobin 16.9, platelet count 219,000. X-RAY: CT scan of the head reveals no acute disease. Chest x-ray reveals mild bibasilar atelectasis with endotracheal tube in good position. A pacemaker is in place. Prior CT scan of the thorax in November of this year is reviewed and does reveal multiple nonspecific nodes in the aortopulmonary window with bilateral atelectasis. Radiologist indicates lymph nodes in the mediastinum are the same or slightly smaller than ones in September. IMPRESSION: 75-year-old with encephalopathy upon presentation with subsequent worsening mental status requiring intubation and mechanical ventilation. He is currently mildly hypotensive and is undergoing volume resuscitation. He has leukocytosis, but no obvious source of infection. Etiology for his decline is not clear. The patient did recently have cataract surgery and he received an anticholinergic medication that could explain hallucinations. Infections or other etiologies will also be explored. RECOMMENDATIONS: 1. Obtain blood cultures and sputum cultures given leukocytosis. 2. Agree with continuing Zosyn as you are doing pending outcome of culture data. 3. Continue full ventilatory support for hypoxemic respiratory failure. 4. Volume resuscitation for hypotension. 5. Check free T4 level and pneumonia level with additional workup to be performed by Neurology. 6. Additional recommendations pending hospital course.
[2016-03-08] MEDS: DIPRIVAN 1% 100 ML IV SCH ×2 (00:16→05:55)
[2016-03-08 01:16] LABS: UR AMPHETAMINES QUAL NONE DETECTED (NONE DETECT); UR BARBITUATES QUAL NONE DETECTED (NONE DETECT); UR BENZODIAZEPIN QUAL NONE DETECTED (NONE DETECT); UR CANNABINOIDS QUAL NONE DETECTED (NONE DETECT); UR COCAINE QUAL NONE DETECTED (NONE DETECT); UR METHADONE QUAL NONE DETECTED (NONE DETECT); UR OPIATES QUAL PRESUMPTIVE POSITIVE (NONE DETECT); UR OXYCODONE QUAL NONE DETECTED (NONE DETECT); UR PCP QUAL NONE DETECTED (NONE DETECT)
[2016-03-08] MEDS: ZOSYN 3.375 GM/NS 50 ML IV SCH ×4 (01:59→19:37)
[2016-03-08 04:38] LABS: ALLEN TEST YES; BE 0.7 mmoll (-3.0-3.0); BLOOD TYPE ARTERIAL; DRAW SITE R RADIAL; METHB 1.6 % (0.0-1.5); O2(CT) 23.6 mL/dL (15.0-23.0); PCO2(98.6) 40 mmHg (35-45); PO2(98.6) 107 mmHg (60-100); SAMPLE BLOOD; SAO2 98.8 % (95.0-100.0); SRATE 10 BPM; THB 17.5 g/dL (11.5-17.4); TVOL 700 mL; pH(98.6) 7.41 (7.35-7.45)
[2016-03-08 04:39] LABS: MODALITY VENTILATOR
[2016-03-08 05:51] LABS: MANUAL DIFF NEEDED? NO
[2016-03-08 05:54] LABS: BASO% 0.3 % (0.0-0.8); EOS# 0.02 X1000 (0.0-0.7); EOS% 0.1 % (0.0-10.0); HEMATOCRIT 44.8 % (42.0-52.0); HEMOGLOBIN 15.6 g/dL (14.0-18.0); IMM GRAN# 0.11 X1000 (0.0-0.04); IMM GRAN% 0.8 % (0.0-0.5); LYMPH# 1.56 X1000 (1.2-3.4); LYMPH% 11.2 % (20.5-51.1); MCH 30.2 PG (27-31); MCHC 34.8 g/dL (33-37); MCV 86.8 FL (81-99); MONO# 0.67 X1000 (0.11-0.59); MONO% 4.8 % (1.7-9.3); MPV 10.9 FL (7.4-10.4); NEUT% 82.8 % (42.2-75.2); PLT 192 X1000 (130-400); RBC 5.16 XMIL (4.7-6.1)
[2016-03-08] MEDS: HUMULIN R SUBQ SCH ×4 (06:12→20:31)
[2016-03-08 06:15] LABS: ALBUMIN 3.1 g/dL (3.5-5.0); CALCIUM 8.9 mg/dL (8.8-10.2); MAGNESIUM 1.9 mg/dL (1.5-2.7); POTASSIUM 3.8 mmol/L (3.5-5.1); TOTAL BILIRUBIN 1.8 mg/dL (0.20-1.00); TOTAL PROTEIN 6.3 g/dL (6.3-8.3)
--- NOTE | 2016-03-08 06:19 | EKG Report ---
Test Performed on : 03/07/2016 7:24:10 PM Test Reason : Order Cancelled in [employer] Blood Pressure : / mmHG Vent. Rate : 068 BPM Atrial Rate : 077 BPM P-R Int : 000 ms QRS Dur : 172 ms QT Int : 468 ms P-R-T Axes : 000 -87 102 degrees QTc Int : 497 ms Ventricular-paced rhythm Abnormal ECG When compared with ECG of 13-NOV-2015 10:59, No significant change was found Confirmed by Sophia Cannon MD ([id number]) on 03/08/2016 8:49:49 AM
--- NOTE | 2016-03-08 06:19 | Diag Imaging Result Document ---
PROCEDURE NAME: CHEST-1 VIEW - 03/07/2016 SUPINE AP CHEST: COMPARISON: Compared to 03/06/2016,. FINDINGS: An endotracheal tube has been placed. The tip lies approximately 3 cm above the kaley. There is a left-sided pacemaker. The lungs are well expanded. Minimal atelectasis or infiltrates of the lower lungs. No pleural effusions identified. IMPRESSION: Endotracheal tube in good position.
--- NOTE | 2016-03-08 06:35 | Diag Imaging Result Document ---
PROCEDURE NAME: CHEST-PORTABLE - 03/08/2016 PORTABLE CHEST: COMPARISON: Compared to 03/07/2016. FINDINGS: Endotracheal tube remains in good position. Nasogastric tube overlies the esophagus and stomach. The patient has a left-sided pacemaker. The lungs are well expanded. No cardiomegaly. No consolidation. No pleural effusions identified. There granuloma of the right base. IMPRESSION: Stable chest.
[2016-03-08 06:44] LABS: HEMOGLOBIN A1C 9.1 % (4.8-6.0)
[2016-03-08 06:47] LABS: FREE T4 1.26 ng/dL (0.93-1.70)
--- NOTE | 2016-03-08 07:26 | Diag Imaging Result Document ---
PROCEDURE NAME: CHEST/ABD TUBE PLACEMENT - 03/07/2016 PORTABLE CHEST ABDOMEN: COMPARISON: Compared to portable chest taken earlier. FINDINGS: A nasogastric tube has been placed since the prior exam. Visualized esophagus and stomach. Endotracheal tube remains in good position. The lungs remain clear. IMPRESSION: Nasogastric tube in good position.
--- NOTE | 2016-03-08 07:30 | Diag Imaging Result Document ---
PROCEDURE NAME: HEAD W/O CONTRAST - 03/07/2016 CT BRAIN WITHOUT CONTRAST: TECHNIQUE: Dose-reduction technique used. COMPARISON: Compared to 03/05/2016. FINDINGS: No parenchymal hemorrhage. No epidural or subdural hematoma. No subarachnoid hemorrhage. There are chronic microvascular ischemic changes. No hydrocephalus. No sinus opacification. No skull fracture. IMPRESSION: 1. No hemorrhage. 2. Mild microvascular ischemic changes. A preliminary report was given called at 8:08 p.m. This was given to the charge nurse on the floor.
[2016-03-08] MEDS ORDERED: SODIUM CHLORIDE 0.9% INJ ONE (09:20)
[2016-03-08] MEDS: LANOXIN PO SCH (09:29)
[2016-03-08] MEDS: ICAR-C PO SCH ×2 (09:29→20:28)
[2016-03-08] MEDS: VESICARE PO SCH (09:30)
[2016-03-08] MEDS: KLOR-CON PO SCH (09:30)
[2016-03-08] MEDS: ALDACTONE PO SCH (09:31)
[2016-03-08] MEDS: LASIX PO SCH (09:32)
[2016-03-08] MEDS: LACTULOSE PO SCH ×2 (09:33→20:28)
[2016-03-08] MEDS: VITAMIN D PO SCH (09:33)
[2016-03-08] MEDS: PATIENT'S OWN MED LEFT EYE SCH ×4 (09:35→23:39)
[2016-03-08] MEDS: PROSCAR PO SCH (09:35)
[2016-03-08] MEDS: MAG-OX PO SCH ×2 (09:35→20:29)
[2016-03-08] MEDS: TRICOR PO SCH (09:36)
[2016-03-08] MEDS: PYRIDIUM PO SCH (09:36)
[2016-03-08] MEDS: FLONASE NAS SCH ×2 (09:37→20:31)
[2016-03-08] MEDS: LOVENOX SUBQ SCH (09:46)
--- NOTE | 2016-03-08 10:11 | PROGRESS NOTE ---
DATE: 03/08/2016 SUBJECTIVE: This patient was transferred yesterday to the ICU because of respiratory failure. At this moment, this patient is intubate., he is not sedated. He is not following commands. Upon pain stimulation, he grimaces but he is not localizing. Decreased reflexes in the lower and upper extremities. OBJECTIVE: Vital Signs: Temperature 97 degrees, pulse 68, respiratory rate on the monitor 17, blood pressure 141/74, oxygen saturation 97% on 4 L of nasal cannula. HEENT: Head normocephalic. No trauma. PERRLA. Neck: Supple. No JVD. No masses. Chest: Clear to auscultation. No wheezing. No rales. Abdomen: Soft, nontender, nondistended. No hepatosplenomegaly. Positive bowel sounds. Cardiovascular: RRR. No murmurs. No gallops. No rubs. Extremities: No edema. No clubbing. No cyanosis. Neurological Examination: This patient is not on any sedation. He is not following commands. He is not localizing with pain stimulation. He is just grimacing. Decreased reflexes in all 4 extremities. I do not see any facial deviation or weakness. Laboratory: WBC 13.9, hemoglobin 15.6, hematocrit 44.8, platelets 192,000. Sodium 138, potassium 3.8, chloride 100, bicarbonate 23, BUN 27, creatinine 1.4, glucose 181, calcium 8.9. Albumin 3.1. TSH 12.1 but free T4 1.2. ASSESSMENT AND PLAN: 1. Acute respiratory failure. Uncertain etiology. It could be related with global encephalopathy, severe muscle weakness. This patient also has leukocytosis but we do not have any source of infection at this moment. Urinalysis has been negative. Blood culture and sputum culture have been negative as well. We are going to get some records from [facility]. We will continue with general support. I am going to start feeding this patient. Neurology is on board. Because of this hypotension that this patient presented mostly yesterday, I stopped the blood pressure medications. 2. Global encephalopathy, uncertain etiology. I am not sure if this is related to medications or any source of infection. So far, we do not have any laboratory findings that can tell us that this patient has an infection but the WBC is still high. 3. Leukocytosis. Like I mentioned before, no source of infection right now. We will monitor. 4. Uncontrolled diabetes. Yesterday, I increased the dose of his insulin. Today, it looks a little bit better. I will continue monitoring. 5. Diabetic neuropathy. Aware. Continue monitoring. 6. Chronic atrial fibrillation. This patient is not on anticoagulation at home. I am assuming that this is related to his frequent falls. We will monitor. 7. Pacemaker in situ. Aware. 8. History of coronary artery disease. This patient was not complaining of chest pain. We will monitor. 9. Possible myasthenia gravis/neuromuscular disorder. Apparently, this patient was prescribed with Mestinon. We will try to get records from [facility] to corroborate this information. Neurology department is on board. I appreciate their help. CRITICAL CARE TIME: 40 minutes.
[2016-03-08] MEDS: NS 1,000 ML IV SCH (10:26)
--- NOTE | 2016-03-08 10:36 | PROGRESS NOTE ---
DATE: 03/08/2016 Mr. Valadez developed agonal respirations overnight and was transferred to ICU. The is not present right now. I do not have any new information regarding recent neurologic workup reports from [place]. I reviewed the records available here. He had presented some time ago with a significant ethanol level. I do not know if he has used ethanol recently. Urine drug screen was negative initially this admission but positive for opiates last night. This may have come after he got a dose of morphine and lorazepam but the benzodiazepine screen was still negative last night. I do not know if he had surreptitious opiate use during this hospitalization or not. Again, I am not certain about the timing of the drug screen in relation to the documented single morphine dose. Review of other lab work does not show anything that likely would account for his encephalopathy. CT continues unremarkable. On exam, he is not responsive. He has full eye movement with passive head turning. Pupils react to light. Limb tone is equal. There is no meningismus. IMPRESSION: Global encephalopathy, uncertain etiology. As discussed with hospitalist service last night, I wonder about some sort of drug or ethanol related problem. There was report of hallucinations prior to this admission which may be consistent with alcohol withdrawal or benzodiazepine withdrawal syndrome. I do not have documentation that any of his current problems are related in any way to drug use or misuse, however. Negative CT findings are reassuring. I do not see clinical evidence of increased intracranial pressure or bleeding. I do not have any new suggestion from a neurologic standpoint now. Thanks for allowing me to follow Mr. Valadez. [facility]
[2016-03-08] MEDS: SYNTHROID IV SCH (10:39)
[2016-03-08] MEDS: SOLU-MEDROL IV SCH ×2 (10:41→21:19)
[2016-03-08] MEDS: TOVIAZ PO SCH (13:35)
[2016-03-08] MEDS ORDERED: INSULIN PEN NEEDLES ONE (20:22)
[2016-03-08] MEDS: LEVEMIR SUBQ SCH (20:28)
[2016-03-09] MEDS: NS 1,000 ML IV SCH ×3 (01:30→18:00)
[2016-03-09] MEDS: ZOSYN 3.375 GM/NS 50 ML IV SCH ×4 (01:30→21:00)
[2016-03-09 04:47] LABS: ALLEN TEST YES; BE 0.6 mmoll (-3.0-3.0); BLOOD TYPE ARTERIAL; DRAW SITE R RADIAL; METHB 1.5 % (0.0-1.5); O2(CT) 24.2 mL/dL (15.0-23.0); PCO2(98.6) 37 mmHg (35-45); PO2(98.6) 121 mmHg (60-100); SAMPLE BLOOD; SAO2 99.4 % (95.0-100.0); SRATE 10 BPM; THB 17.7 g/dL (11.5-17.4); TVOL 700 mL; pH(98.6) 7.43 (7.35-7.45)
[2016-03-09 04:54] LABS: MODALITY VENTILATOR
[2016-03-09 06:01] LABS: CALCIUM 8.9 mg/dL (8.8-10.2); POTASSIUM 4.3 mmol/L (3.5-5.1)
[2016-03-09 06:02] LABS: BASO% 0.1 % (0.0-0.8); EOS# 0.01 X1000 (0.0-0.7); EOS% 0.1 % (0.0-10.0); HEMATOCRIT 44.1 % (42.0-52.0); IMM GRAN# 0.12 X1000 (0.0-0.04); IMM GRAN% 0.9 % (0.0-0.5); LYMPH# 1.44 X1000 (1.2-3.4); LYMPH% 10.6 % (20.5-51.1); MANUAL DIFF NEEDED? YES; MCH 29.8 PG (27-31); MCV 87.7 FL (81-99); MONO# 0.72 X1000 (0.11-0.59); MONO% 5.3 % (1.7-9.3); MPV 11.6 FL (7.4-10.4); PLT 199 X1000 (130-400); RBC 5.03 XMIL (4.7-6.1)
[2016-03-09] MEDS: HUMULIN R SUBQ SCH ×4 (06:19→21:47)
--- NOTE | 2016-03-09 08:16 | Diag Imaging Result Document ---
PROCEDURE NAME: CHEST-PORTABLE - 03/09/2016 AP PORTABLE CHEST: TIME: 0450 hours. FINDINGS: There is some atelectasis in the right middle lobe and lingula. This has not changed appreciably since 03/08/2016. IMPRESSION: Subsegmental atelectasis.
[2016-03-09 09:27] LABS: BANDS 2 % (0-1); LYMPHS 18 % (21-51); MONO 4 % (1-9)
[2016-03-09] MEDS: TOVIAZ PO SCH (09:36)
[2016-03-09] MEDS: LACTULOSE PO SCH ×2 (09:36→21:31)
[2016-03-09] MEDS: MAG-OX PO SCH ×2 (09:36→21:28)
[2016-03-09] MEDS: ICAR-C PO SCH ×2 (09:36→21:28)
[2016-03-09] MEDS: KLOR-CON PO SCH (09:36)
[2016-03-09] MEDS: TRICOR PO SCH (09:36)
[2016-03-09] MEDS: VITAMIN D PO SCH (09:37)
[2016-03-09] MEDS: ALDACTONE PO SCH (09:37)
[2016-03-09] MEDS: LASIX PO SCH (09:37)
[2016-03-09] MEDS: SYNTHROID IV SCH (09:37)
[2016-03-09] MEDS: LANOXIN PO SCH (09:37)
[2016-03-09] MEDS: SOLU-MEDROL IV SCH ×2 (09:39→21:28)
[2016-03-09] MEDS: PATIENT'S OWN MED LEFT EYE SCH ×4 (09:40→21:48)
[2016-03-09] MEDS: LOVENOX SUBQ SCH (09:40)
[2016-03-09] MEDS: FLONASE NAS SCH ×2 (09:40→21:29)
[2016-03-09] MEDS: PROSCAR PO SCH (09:40)
[2016-03-09] MEDS: LEVEMIR SUBQ SCH ×2 (09:42→22:00)
[2016-03-09] MEDS: VESICARE PO SCH (09:42)
[2016-03-09 11:01] LABS: ALLEN TEST YES; BE 2.4 mmoll (-3.0-3.0); BLOOD TYPE ARTERIAL; DRAW SITE R RADIAL; METHB 1.4 % (0.0-1.5); O2(CT) 21.6 mL/dL (15.0-23.0); PCO2(98.6) 33 mmHg (35-45); PO2(98.6) 137 mmHg (60-100); SAMPLE BLOOD; SAO2 100.1 % (95.0-100.0); THB 15.7 g/dL (11.5-17.4); pH(98.6) 7.49 (7.35-7.45)
[2016-03-09 11:02] LABS: MODALITY VENTILATOR
[2016-03-09] MEDS: CORGARD PO SCH (11:40)
--- NOTE | 2016-03-09 11:49 | PROGRESS NOTE ---
DATE: 03/09/2016 SUBJECTIVE: This patient was transferred 2 days ago to the ICU because of respiratory failure. Today, this patient is doing much better. He is alert. He is following commands. He is still intubated, his strength is better today. It is about 3-4/5 in upper extremity and 4/5 lower extremities. Probably, this patient will be extubated today. I will ask for the records in [facility]. OBJECTIVE: Vital Signs: Temperature 97.6 degrees, pulse 60, respiratory rate 10, blood pressure 181/99. Oxygen saturation 98 on mechanical ventilation, 40% oxygen flow. HEENT : Head normocephalic. No trauma. PERRLA. Neck supple. No JVD. No masses. Chest clear to auscultation. No wheezing. No rales. Abdomen is soft, nontender, nondistended. No hepatosplenomegaly. Positive bowel sounds. Cardiovascular: RRR. No murmurs. No gallops. No rubs. Extremities: No edema. No clubbing. No cyanosis. Neurologic: The patient is alert. He is not talking. He has an endotracheal tube, but he is following commands. He is moving all 4 extremities 3-4/5 upper extremity and 4/5 lower extremity. I do not see any facial deviation. LABORATORY: WBC 13.6, hemoglobin 15, hematocrit 44, platelet 199,000. Sodium 138, potassium 4.3, chloride 102, bicarbonate 23. BUN 35, creatinine 1.2, glucose 264. Calcium 8.9. ASSESSMENT AND PLAN: 1. Acute respiratory failure, uncertain etiology. It could be related with global encephalopathy or severe muscle weakness. Even though this patient has leukocytosis, we do not have any specific source of infection at this moment. Probably, this patient will be extubated today. 2. Global encephalopathy. We are not sure if this was related to medications an infection but, either way, we do not have any specific source of infection. His WBC is still a little bit high. The patient is getting better though. 3. Leukocytosis. Continue monitoring. 4. Hypertension. I will add blood pressure medication to his medications. He used to be on Nadolol 20 mg p.o. daily. 5. Uncontrolled diabetes. I increased the dose of his insulin today. Will monitor. 6. Diabetic neuropathy, aware. Continue monitoring. 7. Chronic atrial fibrillation. The patient is not on anticoagulation at home. I am assuming that this is related to his frequent falls. We will monitor. 8. Pacemaker. aware. 9. History of coronary artery disease. He is not complaining of any chest pain right now. We will monitor. 10. Possible myasthenia gravis/neuromuscular disorder. Apparently, this patient was prescribed with Mestinon. We will try to get records from [facility] corroborate this information. Neurology Department is on board. I appreciate their help. CRITICAL CARE TIME: 40 minutes. ANAM
--- NOTE | 2016-03-09 13:44 | PROGRESS NOTE ---
DATE: 03/09/2016 Mr. Valadez is much more alert today. He communicated with me. He spoke some short sentences and speech is slightly dysarthric but easily understood. I do not see evidence of language disturbance. He moved all of his limbs. I discussed recent history with the patient and . I do not have anything new to report. He denies recent significant ethanol use. believes he has had only a few beers in recent weeks. She believes he has not used any illicit drugs. I do not have any new recommendations from a neurologic standpoint. I do not have a definite explanation for his encephalopathy and clinical course.
[2016-03-09] MEDS ORDERED: PRINIVIL PO ONE (20:26)
[2016-03-09] MEDS: APRESOLINE IV PRN (21:28)
[2016-03-10] MEDS: ZOSYN 3.375 GM/NS 50 ML IV SCH ×4 (02:30→22:09)
[2016-03-10] MEDS: NS 1,000 ML IV SCH (04:10)
[2016-03-10] MEDS: HUMULIN R SUBQ SCH ×4 (06:10→22:11)
[2016-03-10 06:44] LABS: MANUAL DIFF NEEDED? NO
[2016-03-10 06:53] LABS: HEMATOCRIT 42.6 % (42.0-52.0); HEMOGLOBIN 14.6 g/dL (14.0-18.0); IMM GRAN# 0.06 X1000 (0.0-0.04); IMM GRAN% 0.7 % (0.0-0.5); LYMPH# 1.19 X1000 (1.2-3.4); LYMPH% 13.1 % (20.5-51.1); MCH 29.9 PG (27-31); MCHC 34.3 g/dL (33-37); MCV 87.1 FL (81-99); MONO# 0.47 X1000 (0.11-0.59); MONO% 5.2 % (1.7-9.3); PLT 177 X1000 (130-400); RBC 4.89 XMIL (4.7-6.1)
[2016-03-10 07:22] LABS: AGAP 12; BUN 31 mg/dL (8-22); CALCIUM 8.9 mg/dL (8.8-10.2); CHLORIDE 101 mmol/L (98-107); COSMO 283; POTASSIUM 4.1 mmol/L (3.5-5.1); SODIUM 138 mmol/L (136-145); TCO2 25 mmol/L (25-35)
--- NOTE | 2016-03-10 08:00 | Diag Imaging Result Document ---
PROCEDURE NAME: CHEST-PORTABLE - 03/10/2016 PORTABLE CHEST X-RAY: COMPARISON: 03/09/2016. FINDINGS: Stable pacemaker. Stable mild cardiomegaly and pulmonary vascular congestion. There is decrease in the left infrahilar, basilar infiltrate. No new infiltrates. IMPRESSION: Improvement from prior.
[2016-03-10] MEDS: LACTULOSE PO SCH ×2 (08:32→22:10)
[2016-03-10] MEDS: VITAMIN D PO SCH (08:33)
[2016-03-10] MEDS: PROSCAR PO SCH (08:33)
[2016-03-10] MEDS: ALDACTONE PO SCH (08:33)
[2016-03-10] MEDS: TOVIAZ PO SCH (08:34)
[2016-03-10] MEDS: ICAR-C PO SCH ×2 (08:34→22:11)
[2016-03-10] MEDS: MAG-OX PO SCH ×2 (08:34→22:12)
[2016-03-10] MEDS: TRICOR PO SCH (08:34)
[2016-03-10] MEDS: KLOR-CON PO SCH (08:34)
[2016-03-10] MEDS: VESICARE PO SCH (08:34)
[2016-03-10] MEDS: PRINIVIL PO SCH (08:35)
[2016-03-10] MEDS: LANOXIN PO SCH (08:35)
[2016-03-10] MEDS: LASIX PO SCH (08:35)
[2016-03-10] MEDS: FLONASE NAS SCH ×2 (08:37→22:10)
[2016-03-10] MEDS: PATIENT'S OWN MED LEFT EYE SCH ×4 (08:37→22:09)
[2016-03-10] MEDS: CORGARD PO SCH (08:38)
[2016-03-10] MEDS: SOLU-MEDROL IV SCH (10:13)
[2016-03-10] MEDS: LOVENOX SUBQ SCH (10:14)
[2016-03-10] MEDS: SYNTHROID IV SCH (10:14)
[2016-03-10] MEDS: PREDNISONE PO SCH (13:02)
--- NOTE | 2016-03-10 13:11 | PROGRESS NOTE ---
DATE: 03/10/2016 SUBJECTIVE: This patient was extubated yesterday, he was in the ICU, he was admitted to the ICU 3 days ago because of respiratory failure and he was intubated, he is doing better today, but he is confused. OBJECTIVE: Vital Signs: Temperature 97.7 degrees, pulse 60, respiratory rate 18, blood pressure 150/82, oxygen saturation 95% on 4 L on nasal cannula. HEENT: Head normocephalic. No trauma. PERRLA. Neck: Supple. No JVD. No masses. Chest: Clear to auscultation. No wheezing. No rales. Abdomen: Soft, nontender, nondistended. No hepatosplenomegaly. Positive bowel sounds. Cardiovascular: RRR. No murmurs. No gallops. No rubs. Extremities: No edema. No clubbing. No cyanosis. Neurological examination: The patient is alert. He is oriented x3, but sometimes he is confused, and this is on and off. He moves all 4 extremities. No changes compared with yesterday, 4/5 in all 4 extremities. I do not see any facial deviation. I do not see any slurred speech. LABORATORY: WBC 9, hemoglobin 14.6, hematocrit 42.6, platelets 177. Sodium 138, potassium 4.1, chloride 101, bicarbonate 25, BUN 31, creatinine 1.1, glucose 118, calcium 8.9. ASSESSMENT AND PLAN: 1. Acute respiratory failure, improved. This patient was on mechanical ventilation, but now he was extubated yesterday and he is doing better. No respiratory distress. I will continue with the oxygen by nasal cannula. 2. Global encephalopathy. He looks better today compared with the admission, but he is still confused on and off. We will monitor. 3. Leukocytosis. The leukocytes today are normal. Will monitor. 4. Hypertension. The blood pressure is better controlled. We will monitor. 5. Uncontrolled diabetes. The blood sugar is better controlled at this moment. 6. Possible myasthenia gravis/neuromuscular disorder. Apparently this patient was prescribed with Mestinon. Yesterday we received some records from [facility] in [place] that corroborate this information, but the information that we had was about his previous hospitalization with a cardiac cath. I will ask again for Dr. Elaine's records, a neurologist in [place]. 7. Diabetic neuropathy. Aware. Continue monitoring. 8. Chronic atrial fibrillation. This patient is not on anticoagulation at home. I am assuming that this is related to his frequent falls. We will monitor. 9. History of coronary artery disease. He is not having any chest pain right now or complaining of shortness of breath. He has a pacemaker. Will monitor.
--- NOTE | 2016-03-10 13:13 | PROGRESS NOTE ---
DATE: 03/10/2016 SUBJECTIVE: Mr. Valadez is much brighter today, consistently alert and attentive, able to carry on appropriate conversation. He reports no memory of the last few days. He reports not taking any medications incorrectly. In retrospect, it appears he did not ever take any pyridostigmine. I do not have any new imaging reports. Lab today does not show anything remarkable. I discussed my uncertainty regarding diagnosis frankly with the patient and . No new suggestions today.
[2016-03-10] MEDS: LEVEMIR SUBQ SCH (22:12)
[2016-03-11] MEDS: ZOSYN 3.375 GM/NS 50 ML IV SCH ×4 (02:57→23:54)
[2016-03-11] MEDS: HUMULIN R SUBQ SCH ×3 (06:30→18:01)
--- NOTE | 2016-03-11 06:36 | Diag Imaging Result Document ---
PROCEDURE NAME: CHEST-PORTABLE - 03/11/2016 PORTABLE CHEST: COMPARISON: 03/10/2016. FINDINGS: The lungs are well expanded. The patient has a left-sided pacemaker. The heart remains enlarged. No pleural effusions identified. The vessels are not overly distended. No consolidation. IMPRESSION: Stable chest.
[2016-03-11] MEDS ORDERED: SODIUM CHLORIDE 0.9% 10 ML ONE (08:02)
[2016-03-11] MEDS: TOVIAZ PO SCH (11:26)
[2016-03-11] MEDS: PRINIVIL PO SCH (11:26)
[2016-03-11] MEDS: KLOR-CON PO SCH (11:26)
[2016-03-11] MEDS: LOVENOX SUBQ SCH (11:26)
[2016-03-11] MEDS: LACTULOSE PO SCH ×2 (11:26→23:59)
[2016-03-11] MEDS: VITAMIN D PO SCH (11:27)
[2016-03-11] MEDS: ALDACTONE PO SCH (11:27)
[2016-03-11] MEDS: MAG-OX PO SCH ×2 (11:27→23:59)
[2016-03-11] MEDS: PROSCAR PO SCH (11:27)
[2016-03-11] MEDS: ICAR-C PO SCH (11:27)
[2016-03-11] MEDS: FLONASE NAS SCH ×2 (11:28→23:58)
[2016-03-11] MEDS: PREDNISONE PO SCH (11:28)
[2016-03-11] MEDS: LANOXIN PO SCH (11:28)
[2016-03-11] MEDS: VESICARE PO SCH (11:28)
[2016-03-11] MEDS: TRICOR PO SCH (11:28)
[2016-03-11] MEDS: CORGARD PO SCH (11:28)
[2016-03-11] MEDS: PATIENT'S OWN MED LEFT EYE SCH ×3 (11:29→18:02)
[2016-03-11] MEDS: SYNTHROID IV SCH (11:29)
[2016-03-11] MEDS: LASIX PO SCH (11:29)
--- NOTE | 2016-03-11 13:26 | PROGRESS NOTE ---
DATE: 03/11/2016 Mr. Valadez is awake, alert, attentive, much more appropriate. I observed him sitting up in bed, feeding himself, chewing without difficulty. He seems to be recovering very well. There is nothing new from my standpoint.
--- NOTE | 2016-03-11 16:58 | PROGRESS NOTE ---
DATE: 03/11/2016 SUBJECTIVE: This patient was extubated 2 days ago. He was in the ICU. He was admitted 3 days ago and because he started with the respiratory failure he was intubated. He is doing much better today. As per the he was confused most of the night. Today when I evaluated the patient he was more alert, more oriented. OBJECTIVE: Vital Signs: Temperature 98.8 degrees, pulse 71, respiratory rate 17, blood pressure 161/101. O2 saturation 98 on nasal cannula. HEENT: Head normocephalic. No trauma. PERRLA. Neck: Supple. No JVD. No masses. Chest: Clear to auscultation. No wheezing. No rales. Abdomen: Soft, nontender, nondistended. No hepatosplenomegaly. Positive bowel sounds. Cardiovascular: RRR. No murmurs. No gallops. No rubs. Extremities: No edema. No clubbing. No cyanosis. Neurological: The patient is alert. He is oriented x3 but sometimes he is confused, on and off. Apparently during the night he was confused. He moves all 4 extremities. No changes compared with yesterday. I do not see any facial deviation I do not see any slurred speech. LABORATORY: WBC 9.1, hemoglobin 14.6, hematocrit 42.6, platelet 177,000. Sodium 138, potassium 4.1, chloride 101, bicarbonate 25, BUN 31, creatinine 1.1. Glucose 118. ASSESSMENT AND PLAN: 1. Global encephalopathy. Compared with the admission he looks better. I will continue monitoring this patient. He is still confused on and off. Apparently during the night he was really confused. 2. Acute respiratory failure improved. This patient was on mechanical ventilation but now he was extubated a few days ago, no respiratory distress at this moment. 3. Leukocytosis improved. 4. Hypertension. The blood pressure is a little bit high. I will adjust his blood pressure medication. 5. Uncontrolled diabetes. The blood sugar is better controlled at this moment. 6. Possible myasthenia gravis/neuromuscular disorder. Apparently this patient was prescribed with Mestinon. We are still waiting for the [facility] paperwork and information about this. We will monitor. 7. Diabetes neuropathy. Aware. Continue monitoring. 8. Chronic atrial fibrillation. This patient is not on anticoagulation at home. I am assuming that disease related to his frequent falls. We will monitor. 9. History of coronary artery disease. He is not having any chest pain right now or complaining of shortness of breath. He has a pacemaker. Will monitor.
[2016-03-12] MEDS ORDERED: INSULIN PEN NEEDLES ONE (00:09)
[2016-03-12] MEDS: HUMULIN R SUBQ SCH ×5 (00:14→21:09)
[2016-03-12] MEDS: LEVEMIR SUBQ SCH ×2 (00:25→20:29)
[2016-03-12] MEDS: APRESOLINE IV PRN (02:47)
[2016-03-12] MEDS: ZOSYN 3.375 GM/NS 50 ML IV SCH ×4 (02:47→20:29)
[2016-03-12 06:44] LABS: MANUAL DIFF NEEDED? NO
[2016-03-12 06:47] LABS: BASO% 0.2 % (0.0-0.8); EOS# 0.11 X1000 (0.0-0.7); HEMATOCRIT 47.5 % (42.0-52.0); HEMOGLOBIN 16.6 g/dL (14.0-18.0); IMM GRAN# 0.19 X1000 (0.0-0.04); IMM GRAN% 1.7 % (0.0-0.5); LYMPH# 1.98 X1000 (1.2-3.4); MCH 29.5 PG (27-31); MCHC 34.9 g/dL (33-37); MCV 84.5 FL (81-99); MONO# 1.12 X1000 (0.11-0.59); MONO% 10.2 % (1.7-9.3); MPV 10.5 FL (7.4-10.4); NEUT% 68.9 % (42.2-75.2); PLT 215 X1000 (130-400); RBC 5.62 XMIL (4.7-6.1)
[2016-03-12 07:13] LABS: AGAP 14; BUN 27 mg/dL (8-22); CALCIUM 9.3 mg/dL (8.8-10.2); CHLORIDE 99 mmol/L (98-107); COSMO 284; POTASSIUM 3.3 mmol/L (3.5-5.1); SODIUM 139 mmol/L (136-145); TCO2 26 mmol/L (25-35)
[2016-03-12] MEDS: SYNTHROID IV SCH (09:32)
[2016-03-12] MEDS: LOVENOX SUBQ SCH (09:33)
[2016-03-12] MEDS: VITAMIN D PO SCH (09:37)
[2016-03-12] MEDS: PRINIVIL PO SCH (09:37)
[2016-03-12] MEDS: TRICOR PO SCH (09:37)
[2016-03-12] MEDS: TOVIAZ PO SCH (09:37)
[2016-03-12] MEDS: LANOXIN PO SCH (09:38)
[2016-03-12] MEDS: ICAR-C PO SCH ×3 (09:38→20:29)
[2016-03-12] MEDS: PREDNISONE PO SCH (09:40)
[2016-03-12] MEDS: PROSCAR PO SCH (09:40)
[2016-03-12] MEDS: CORGARD PO SCH (09:41)
[2016-03-12] MEDS: LASIX PO SCH (09:41)
[2016-03-12] MEDS: KLOR-CON PO SCH (09:41)
[2016-03-12] MEDS: FLONASE NAS SCH ×2 (09:41→20:28)
[2016-03-12] MEDS: ALDACTONE PO SCH (09:41)
[2016-03-12] MEDS: VESICARE PO SCH (09:43)
[2016-03-12] MEDS: MAG-OX PO SCH ×2 (09:43→20:29)
[2016-03-12] MEDS: PATIENT'S OWN MED LEFT EYE SCH ×4 (09:43→17:23)
[2016-03-12] MEDS: LACTULOSE PO SCH ×2 (09:43→20:29)
--- NOTE | 2016-03-12 16:15 | PROGRESS NOTE ---
DATE: 03/12/2016 SUBJECTIVE: This patient was extubated 3 days ago secondary to acute respiratory failure, no respiratory distress at this moment. This patient is still with confusion. Probably this is close to be his baseline. I will talk to the to see if this patient can probably go home. I will talk to the to make arrangements to send this patient home either tomorrow or Monday. I am not quite sure if they want to go ahead and get physical therapy in a rehab center. OBJECTIVE: Vital Signs: Temperature 97.5 degrees, pulse 73, respiratory rate 19, blood pressure 139/95, O2 saturation 98% on room air. HEENT: Head normocephalic. No trauma. PERRLA. Neck: Supple. No JVD. No masses. Chest: Clear to auscultation. No wheezing. No rales. Abdomen: Soft, nontender, nondistended. No hepatosplenomegaly. Positive bowel sounds. Cardiovascular: RRR. No murmurs. No gallops. No rubs. Extremities: No edema. No clubbing. No cyanosis. Neurological: The patient is alert and oriented x3, but sometimes he is confused on and off. He moves all 4 extremities. No changes compared with yesterday. I do not see any facial deviation or slurred speech. LABORATORY: WBC 11, hemoglobin 16.6, hematocrit 47.5, platelets 215,000. Sodium 139, potassium 3.3, chloride 99, bicarbonate 26, BUN 27, creatinine 1.1, glucose 123, calcium 9.3. ASSESSMENT AND PLAN: 1. Global encephalopathy. Compared with admission he looks much better, but we will continue monitoring this patient probably for 1 or 2 more days. He is still confused on and off. 2. Acute respiratory failure. Resolved. 3. Leukocytosis. Improved. 4. Hypertension. The blood pressure is controlled. We will monitor. 5. Uncontrolled diabetes. The blood sugar is better controlled at this moment. 6. Possible myasthenia gravis/neuromuscular disorder. Apparently this patient was prescribed with Mestinon. I have been trying to get records from [facility]. I will monitor. 7. Diabetic neuropathy. Aware. Continue monitoring. 8. Chronic atrial fibrillation. This patient is not on anticoagulation at home. I am assuming this is because he has frequent falls. We will monitor. 9. History of coronary artery disease. He is not having any chest pain right now, or complaining of shortness of breath. He has a pacemaker. Will monitor.
[2016-03-13] MEDS: PATIENT'S OWN MED LEFT EYE SCH ×4 (00:29→17:25)
[2016-03-13] MEDS: ZOSYN 3.375 GM/NS 50 ML IV SCH ×4 (02:19→23:59)
[2016-03-13] MEDS: HUMULIN R SUBQ SCH ×3 (06:18→17:25)
[2016-03-13] MEDS ORDERED: SODIUM CHLORIDE 0.9% 10 ML ONE (06:25)
[2016-03-13 07:27] LABS: CALCIUM 9.1 mg/dL (8.8-10.2); MAGNESIUM 2.2 mg/dL (1.5-2.7)
[2016-03-13] MEDS: LASIX PO SCH (08:02)
[2016-03-13] MEDS: ALDACTONE PO SCH (08:02)
[2016-03-13] MEDS: LACTULOSE PO SCH ×2 (08:42→09:01)
[2016-03-13] MEDS: ICAR-C PO SCH ×2 (08:42→09:01)
[2016-03-13] MEDS: KLOR-CON POWDER PACKET PO SCH (08:42)
[2016-03-13] MEDS: TRICOR PO SCH (08:43)
[2016-03-13] MEDS: VESICARE PO SCH (08:43)
[2016-03-13] MEDS: TOVIAZ PO SCH (08:43)
[2016-03-13] MEDS: KLOR-CON PO SCH (08:43)
[2016-03-13] MEDS: MAG-OX PO SCH (08:43)
[2016-03-13] MEDS: VITAMIN D PO SCH (08:43)
[2016-03-13] MEDS: PROSCAR PO SCH (08:44)
[2016-03-13] MEDS: PREDNISONE PO SCH (08:44)
[2016-03-13] MEDS: PRINIVIL PO SCH (08:44)
[2016-03-13] MEDS: LANOXIN PO SCH (08:44)
[2016-03-13] MEDS: FLONASE NAS SCH (08:45)
[2016-03-13] MEDS: CORGARD PO SCH (08:45)
[2016-03-13] MEDS: NS 1,000 ML IV SCH (08:46)
[2016-03-13] MEDS: SYNTHROID IV SCH (08:46)
[2016-03-13] MEDS: LOVENOX SUBQ SCH (10:13)
--- NOTE | 2016-03-13 14:41 | PROGRESS NOTE ---
DATE: 03/13/2016 SUBJECTIVE: This patient looks better today. Compared with the admission his strength is much better. Apparently he has some confusion during the night but at this moment he is not confused. The is at the bedside. We have been talking about the discharge plan, and we agree in sending this patient tomorrow home with home health physical therapy. He wants to follow up with Neurology as an outpatient in [facility]. OBJECTIVE: Vital Signs: Temperature 97.4 degrees, pulse 67, respiratory rate 16, blood pressure 118/82, oxygen saturation 96 on room air. HEENT: Head normocephalic. No trauma. PERRLA. Neck: Supple. No JVD. No masses. Chest: Clear to auscultation. No wheezing. No rales. Abdomen: Soft, nontender, nondistended. No hepatosplenomegaly. Positive bowel sounds. Cardiovascular: RRR. No murmurs. No gallops. No rubs. Extremities: No edema. No clubbing. No cyanosis. Neurological: The patient is alert and oriented x3. Apparently sometimes he is confused mostly during the night. He moves all 4 extremities. No big changes compared with yesterday. I do not see any facial deviation or slurred speech. LABORATORY: WBC 11, hemoglobin 16.6, hematocrit 47.5, platelets 215,000. Sodium 137, potassium 4, chloride 96, bicarbonate 25, BUN 30, creatinine 1.4, glucose 156, calcium 9.1, magnesium 2.2. ASSESSMENT AND PLAN: 1. Global encephalopathy. Compared with admission he looks much better. We will continue monitoring this patient. Probably tomorrow will discharge this patient home with physical therapy and follow up with his neurologist in [facility]. 2. Acute kidney injury probably related to decreased oral intake. I will put him on IV fluids. 3. Acute respiratory failure resolved. 4. Leukocytosis improved, a little bit elevated today. 5. Hypertension. The blood pressure is controlled. Will monitor. 6. Uncontrolled diabetes. The blood sugar is better controlled at this moment. 7. Possible myasthenia gravis/neuromuscular disorder. Apparently this patient was prescribed with Mestinon. I have been trying to get records from [facility]. Will monitor. At this moment he does not have any deficiency. I do not think this patient has myasthenia gravis. 8. Diabetic neuropathy. Aware. Continue monitoring. 9. Chronic atrial fibrillation. This patient is not on anticoagulation at home. I am assuming that this is because he has frequent falls. Will monitor. 10. History of coronary artery disease. He is not having any chest pain at this moment. He is not complaining of shortness of breath. He has a pacemaker. Will monitor. 11. Possible dementia. Probably this patient is having a new onset of dementia. We need to follow this up.
[2016-03-14] MEDS: HUMULIN R SUBQ SCH ×6 (00:08→21:19)
[2016-03-14] MEDS: LEVEMIR SUBQ SCH ×2 (00:09→21:09)
[2016-03-14] MEDS: ICAR-C PO SCH ×3 (00:11→21:08)
[2016-03-14] MEDS: MAG-OX PO SCH ×3 (00:11→21:08)
[2016-03-14] MEDS: FLONASE NAS SCH ×3 (00:11→21:21)
[2016-03-14] MEDS: LACTULOSE PO SCH ×3 (00:12→21:06)
[2016-03-14] MEDS: PATIENT'S OWN MED LEFT EYE SCH ×5 (00:12→21:20)
[2016-03-14] MEDS: ZOSYN 3.375 GM/NS 50 ML IV SCH ×4 (03:47→21:07)
[2016-03-14 06:37] LABS: BASO% 0.3 % (0.0-0.8); EOS# 0.28 X1000 (0.0-0.7); HEMATOCRIT 44.6 % (42.0-52.0); HEMOGLOBIN 15.6 g/dL (14.0-18.0); IMM GRAN# 0.53 X1000 (0.0-0.04); IMM GRAN% 3.8 % (0.0-0.5); LYMPH# 2.62 X1000 (1.2-3.4); LYMPH% 18.9 % (20.5-51.1); MANUAL DIFF NEEDED? NO; MCH 29.9 PG (27-31); MCV 85.4 FL (81-99); MONO# 1.05 X1000 (0.11-0.59); MONO% 7.6 % (1.7-9.3); MPV 10.6 FL (7.4-10.4); NEUT% 67.4 % (42.2-75.2); PLT 214 X1000 (130-400); RBC 5.22 XMIL (4.7-6.1)
[2016-03-14 08:13] LABS: CALCIUM 8.8 mg/dL (8.8-10.2); POTASSIUM 3.9 mmol/L (3.5-5.1)
[2016-03-14] MEDS: LOVENOX SUBQ SCH (10:00)
[2016-03-14] MEDS: TRICOR PO SCH (10:45)
[2016-03-14] MEDS: KLOR-CON PO SCH (10:46)
[2016-03-14] MEDS: LASIX PO SCH (10:46)
[2016-03-14] MEDS: PREDNISONE PO SCH (10:46)
[2016-03-14] MEDS: TOVIAZ PO SCH (10:46)
[2016-03-14] MEDS: ALDACTONE PO SCH (10:46)
[2016-03-14] MEDS: VITAMIN D PO SCH (10:47)
[2016-03-14] MEDS: KLOR-CON POWDER PACKET PO SCH (10:47)
[2016-03-14] MEDS: PRINIVIL PO SCH (10:47)
[2016-03-14] MEDS: VESICARE PO SCH (10:47)
[2016-03-14] MEDS: LANOXIN PO SCH (10:47)
[2016-03-14] MEDS: CORGARD PO SCH (10:48)
[2016-03-14] MEDS: PROSCAR PO SCH (10:51)
[2016-03-14] MEDS: SYNTHROID IV SCH (10:51)
[2016-03-14] MEDS: NS 1,000 ML IV SCH ×2 (15:13)
--- NOTE | 2016-03-14 15:25 | PROGRESS NOTE ---
DATE: 03/14/2016 SUBJECTIVE: This patient is feeling good today. He has been having on and off confusion. After having a large conversation with his and with him they decided to go ahead and go to a rehab center, the social media coordinator is on board. The plan now is after completing his physical therapy program at the rehab center to go to his urologist in [place], [place]. OBJECTIVE: Vital Signs: Temperature 96.8 degrees, pulse 60, respiratory rate 20, blood pressure 129/86, O2 saturation 94 on room air. HEENT: Head normocephalic. No trauma. PERRLA. Neck: Supple. No JVD. No masses. Chest: Clear to auscultation. No wheezing. No rales. Abdomen: Soft, nontender, nondistended. No hepatosplenomegaly. Positive bowel sounds. Cardiovascular: RRR. No murmurs. No gallops. No rubs. Extremities: No edema. No clubbing. No cyanosis. Neurological: The patient is alert and oriented x3 but he is confused on and off, mostly during the night, he moves all 4 extremities and the strength is 3-4/5 all 4 extremities. I do not see any facial deviation or slurred speech. LABORATORY: WBC 13.8, hemoglobin 15.6, hematocrit 44.6, platelets 214,000. Sodium 139, potassium 3.9, chloride 102, bicarbonate 21, BUN 28, creatinine 1.3, glucose 83, calcium 8.8. ASSESSMENT AND PLAN: 1. Global encephalopathy. Compared with admission he looks much better. We will continue monitoring this patient for 1 more day and hopefully tomorrow he can be discharged to a rehab center. Physical therapy has been consulted. 2. Acute kidney injury probably related to decreased oral intake. This is getting better. I will continue with the IV fluids. 3. Acute respiratory failure resolved. 4. Leukocytosis. Is a little bit elevated today. Will monitor. There is no sign or symptoms of infection. 5. Hypertension. The blood pressure is controlled. Will continue the same treatment. 6. Uncontrolled diabetes. The blood sugar is better controlled at this moment. 7. Possible myasthenia gravis/neuromuscular disorder. Apparently this patient was prescribed with Mestinon. I have been trying to get records from [facility]. At this moment he does not have any deficiency. I do not think this patient has myasthenia gravis given his presentation. 8. Diabetic neuropathy. Aware. Continue treatment and monitoring. 9. Chronic atrial fibrillation. This patient is not on anticoagulation at home. I am assuming that this is because he has frequent falls and probably dementia. 10. History of coronary artery disease. He is not having any chest pain at this moment. He is not complaining of shortness of breath either. He has a pacemaker. Will monitor. 11. Possible dementia. Probably this patient is having a new onset or dementia or worsening of his baseline. We are following.
[2016-03-15] MEDS: ZOSYN 3.375 GM/NS 50 ML IV SCH ×2 (05:31→11:19)
[2016-03-15] MEDS: NS 1,000 ML IV SCH (05:34)
[2016-03-15 08:28] LABS: BASO% 0.4 % (0.0-0.8); EOS# 0.43 X1000 (0.0-0.7); EOS% 2.1 % (0.0-10.0); HEMOGLOBIN 16.2 g/dL (14.0-18.0); IMM GRAN# 1.14 X1000 (0.0-0.04); IMM GRAN% 5.5 % (0.0-0.5); LYMPH# 3.59 X1000 (1.2-3.4); LYMPH% 17.2 % (20.5-51.1); MANUAL DIFF NEEDED? YES; MCH 30.1 PG (27-31); MCHC 35.2 g/dL (33-37); MCV 85.3 FL (81-99); MONO% 7.2 % (1.7-9.3); MPV 10.2 FL (7.4-10.4); NEUT% 67.6 % (42.2-75.2); PLT 275 X1000 (130-400); RBC 5.39 XMIL (4.7-6.1)
[2016-03-15 08:35] LABS: CALCIUM 9.1 mg/dL (8.8-10.2); POTASSIUM 3.9 mmol/L (3.5-5.1)
[2016-03-15 08:42] LABS: BANDS 2 % (0-1); LYMPHS 16 % (21-51); MONO 6 % (1-9)
[2016-03-15] MEDS: HUMULIN R SUBQ SCH ×2 (09:15→11:24)
[2016-03-15] MEDS: CORGARD PO SCH (09:19)
[2016-03-15] MEDS: TRICOR PO SCH (09:19)
[2016-03-15] MEDS: LANOXIN PO SCH (09:19)
[2016-03-15] MEDS: ALDACTONE PO SCH (09:19)
[2016-03-15] MEDS: PREDNISONE PO SCH (09:19)
[2016-03-15] MEDS: ICAR-C PO SCH (09:19)
[2016-03-15] MEDS: PRINIVIL PO SCH (09:19)
[2016-03-15] MEDS: TOVIAZ PO SCH (09:20)
[2016-03-15] MEDS: VESICARE PO SCH (09:20)
[2016-03-15] MEDS: LACTULOSE PO SCH (09:20)
[2016-03-15] MEDS: KLOR-CON PO SCH (09:20)
[2016-03-15] MEDS: VITAMIN D PO SCH (09:20)
[2016-03-15] MEDS: MAG-OX PO SCH (09:20)
[2016-03-15] MEDS: KLOR-CON POWDER PACKET PO SCH (09:20)
[2016-03-15] MEDS: LASIX PO SCH (09:20)
[2016-03-15] MEDS: PROSCAR PO SCH (09:22)
[2016-03-15] MEDS: SYNTHROID IV SCH (09:22)
[2016-03-15] MEDS: PATIENT'S OWN MED LEFT EYE SCH ×2 (09:22→14:49)
[2016-03-15] MEDS ORDERED: SODIUM CHLORIDE 0.9% 10 ML ONE (09:37)
[2016-03-15] MEDS: FLONASE NAS SCH (09:50)
[2016-03-15] MEDS ORDERED: SODIUM CHLORIDE 0.9% MISC PRN (09:52)
[2016-03-15] MEDS: LOVENOX SUBQ SCH (11:20)
[2016-03-15 17:15] VITALS: BP 126/85
--- NOTE | 2016-03-15 23:31 | DISCHARGE SUMMARY ---
ADMISSION DATE: 03/06/2016 DISCHARGE DATE: 03/15/2016 DIAGNOSES LEADING TO HOSPITALIZATION: 1. Encephalopathy, likely infectious versus toxic. 2. Frequent falls. 3. Leukocytosis. 4. Abnormal chest x-ray. 5. Uncontrolled diabetes type 2, on joint terminal attack controller insulin therapy. 6. Diabetic neuropathy. 7. Chronic atrial fibrillation. 8. Pacemaker in-situ. 9. History of coronary artery disease. 10. History of cardiac stent. 11. Failure to thrive. 12. Possible myasthenia gravis. DISCHARGE DIAGNOSES: 1. Global encephalopathy, resolved. 2. Acute kidney injury. 3. Acute respiratory failure, resolved. 4. Leukocytosis. 5. Hypertension. 6. Uncontrolled diabetes. 7. Possible myasthenia gravis/neuromuscular disorder. 8. Diabetic neuropathy. 9. Chronic atrial fibrillation. 10. History of coronary artery disease. 11. Possible dementia. CONSULTS: 1. Neurology Department, Dr. Sevilla. 2. Pulmonary Department, Dr. Mcfarlane. HOSPITAL COURSE: The patient is a 75-year-old male, with a past medical history of chronic atrial fibrillation, coronary artery disease, hypertension, pacemaker in situ, sleep apnea, chronic urinary tract infection, previous CVA and TIA, possible myasthenia gravis/neuromuscular disorder, type 2 diabetes on long insulin therapy, hypothyroidism, possible dementia, who came to the emergency department and admitted on the . He presented severe weakness and confusion. At that moment, we were not sure if he took some medications, but the said that over the last 3 days, he has been falling a lot and hallucinating. The patient at the moment of admission did not provide the history, because he was very confused. He was tired and dehydrated as well. This is why we decided to admit this patient to the regular floor for further treatment. We consulted Neurology Department to evaluate this patient. The day after admission, this patient had severe weakness, to the point that he ended up with respiratory failure. He was intubated and transferred to the ICU. Then, the strength slowly came back and he was extubated, and transferred back to the floor. No new recommendations were made by Neurology Department. He was improving on a daily basis. We asked for physical therapy evaluation. He was tolerating p.o. as well. We discussed the possibility of sending this patient to a rehab center, but the patient and the refused, and they decided to go home with physical therapy and home health. At the moment of discharge, this patient was in stable medical condition, tolerating p.o. and ambulating with assistance. OBJECTIVE: vital signs: Temperature 97.9, pulse 68, respiratory rate 20, blood pressure 126/85, oxygen saturation 98 on room air. HEENT: Head normocephalic. No trauma. PERRLA. Neck: Supple. No JVD. No masses. Central trachea. Chest: Clear to auscultation. No wheezing. No rales. Abdomen: Soft, nontender, nondistended. No hepatosplenomegaly. Extremities: No edema. No clubbing. No cyanosis. Neurological: The patient is alert and oriented x3. He is confused on and off, mostly during the night. He moves all 4 extremities. Strength 4/5 all 4 extremities. I do not see any facial deviation or slurred speech. LABORATORY: WBC 20, hemoglobin 16.2, hematocrit 46, platelets 275,000. Sodium 140, potassium 3.9, chloride 102, bicarbonate 24, BUN 25, creatinine 1.3, glucose 77. FOLLOWUP: 1. Follow up by his primary care physician in 1 week. 2. Neurology Dependent in [place], [place]. DISCHARGE MEDICATIONS: Prednisone 10 mg p.o. daily for 1 week, and then 5 mg for 1 week, and then 2.5 mg for 1 week, and then 2.5 mg every other day for 1 week. He will continue with the vitamin D3, 2000 units p.o. daily, digoxin 135 mcg p.o. daily, fenofibrate 40 mg p.o. daily, fesoterodine fumarate 8 mg p.o. daily, finasteride 5 mg p.o. daily, fluticasone 2 sprays intranasally twice a day, furosemide 40 mg p.o. daily, insulin detemir 30 mg subcu every bedtime, I- Car C 1 tablet twice a day, lactulose 15 mL twice a day, levothyroxine 200 mcg p.o. daily, lisinopril 20 mg p.o. daily, magnesium oxide 400 mg oral twice a day, nadolol 20 mg p.o. daily, pantoprazole 40 mg p.o. daily, potassium chloride 10 mEq p.o. daily, prednisolone 1% ophthalmic solution 1 drop left eye 4 times a day, VESIcare 5 mg p.o. daily, spironolactone 25 mg p.o. daily. Time discharging this patient: 35 minutes MTDD
--- NOTE | 2016-03-22 12:56 | DISCHARGE SUMMARY ---
ADMISSION DATE: 03/06/2016 DISCHARGE DATE: 03/15/2016 DISCHARGE SUMMARY ADDENDUM: Please add to the diagnoses: Aspiration pneumonia was ruled out.
== END 2016-03-15 18:14 | disposition home health service (06) | DRG 70 ==
LOC: EDBD → ED 18:35 → SUPCPDRO 18:35 → 4N 03-06 02:09 → ICU 03-07 20:03 → 3N 03-10 17:22
PROVIDERS: ATTEND Internal Medicine
PROC: 5A1945Z Respiratory Ventilation, 24-96 Consecutive Hours (ICD-10-PCS; principal; 2016-03-07)
PROC: 0DH67UZ Insertion of Feeding Device into Stomach, Via Natural or Artificial Opening (ICD-10-PCS; 2016-03-07)
PROC: 0BH17EZ Insertion of Endotracheal Airway into Trachea, Via Natural or Artificial Opening (ICD-10-PCS; 2016-03-07)
PROC: 3E0G76Z Introduction of Nutritional Substance into Upper GI, Via Natural or Artificial Opening (ICD-10-PCS; 2016-03-07)
DX: G93.40 Encephalopathy, unspecified (principal); J96.01 Acute respiratory failure with hypoxia; N17.9 Acute kidney failure, unspecified; E11.40 Type 2 diabetes mellitus with diabetic neuropathy, unspecified; E11.65 Type 2 diabetes mellitus with hyperglycemia; I48.2 Chronic atrial fibrillation; F03.90 Unspecified dementia, unspecified severity, without behavioral disturbance, psychotic disturbance, mood disturbance, and anxiety; E86.0 Dehydration; G70.00 Myasthenia gravis without (acute) exacerbation; F32.9 Major depressive disorder, single episode, unspecified; R62.7 Adult failure to thrive; E03.9 Hypothyroidism, unspecified; W07.XXXA Fall from chair, initial encounter; G47.30 Sleep apnea, unspecified; R29.6 Repeated falls; Z79.899 Other long term (current) drug therapy; Z79.51 Long term (current) use of inhaled steroids; Z79.4 Long term (current) use of insulin; Z95.5 Presence of coronary angioplasty implant and graft; Z87.440 Personal history of urinary (tract) infections; Z95.0 Presence of cardiac pacemaker; Z86.73 Personal history of transient ischemic attack (TIA), and cerebral infarction without residual deficits; Z82.49 Family history of ischemic heart disease and other diseases of the circulatory system; Z87.891 Personal history of nicotine dependence
CPT/HCPCS: 31500; 70450; 71010; 71020; 72100; 72125; 72170; 74000; 80048; 80053; 80162; 81001; 82009; 82140; 82378; 82550; 82607; 82805; 82948; 83036; 83735; 84100; 84153; 84439; 84443; 84484; 85025; 85610; 85730; 86780; 87040; 87070; 87205; 89220; 93005; 93010; 94002; 94003; 94761; 94762; 94799; 99284; G0480; J0330; J0360; J1650; J2060; J2270; J2543; J2920; J7030; J7512; S0138; 97001-GP; 97110-GP; 97116-GP; 97530-GP

== ENCOUNTER 2018-09-21 13:41 | Inpatient (IN) ==
--- NOTE | 2018-09-21 14:53 | Diag Imaging Result Doc PS360 ---
EXAM: FLAT/UPRIGHT ABD/1 VIEW CHEST - 09/21/2018 HISTORY: constipation lethargy TECHNIQUE: Supine and upright abdomen one view chest COMPARISON: 12/20/2017 chest two views FINDINGS: There is a moderate amount retained fecal debris in the colon suggesting constipation. The bowel gas pattern otherwise appears nonspecific and nonobstructive. There is no free air identified. Upright chest shows upper normal heart size, which is decreased compared to prior. There is transvenous cardiac pacemaker again seen. Lungs appear clear except for apparent mild basilar scarring. There is no pleural effusion or pneumothorax identified. IMPRESSION: Evidence of constipation. Nonspecific, nonobstructive bowel gas pattern otherwise. No evidence of acute cardiopulmonary disease. Electronically signed by Cedric Brown 09/21/2018 2:51 PM
[2018-09-21 15:36] LABS: BASO# 0.04 X1000 (0.0-0.2); BASO% 0.4 % (0.0-0.8); EOS# 0.14 X1000 (0.0-0.7); EOS% 1.3 % (0.0-10.0); HEMATOCRIT 47.6 % (42.0-52.0); HEMOGLOBIN 16.4 g/dL (14.0-18.0); IMM GRAN# 0.07 X1000 (0.0-0.04); IMM GRAN% 0.7 % (0.0-0.5); LYMPH# 2.04 X1000 (1.2-3.4); LYMPH% 19.2 % (20.5-51.1); MCH 31.1 PG (27-31); MCHC 34.5 g/dL (33-37); MCV 90.3 FL (81-99); MONO% 7.5 % (1.7-9.3); MPV 10.4 FL (7.4-10.4); NEUT# 7.56 X1000 (1.4-6.5); NEUT% 70.9 % (42.2-75.2); PLT 143 X1000 (130-400); RBC 5.27 XMIL (4.7-6.1); RDW 14.3 % (11.5-14.5); WBC 10.65 X1000 (4.8-10.8)
[2018-09-21 16:15] LABS: ALBUMIN 4.2 g/dL (3.5-5.0); CALCIUM 9.7 mg/dL (8.8-10.2); POTASSIUM 5.6 mmol/L (3.5-5.1); TOTAL BILIRUBIN 1.1 mg/dL (0.20-1.00); TOTAL PROTEIN 7.2 g/dL (6.3-8.3)
[2018-09-21] MEDS ORDERED: NS 1,000 ML IV ONE (17:53)
--- NOTE | 2018-09-21 17:53 | EKG Report ---
Test Performed on : 09/21/2018 4:32:39 PM Test Reason : b/p lethargy Blood Pressure : / mmHG Vent. Rate : 066 BPM Atrial Rate : 072 BPM P-R Int : 000 ms QRS Dur : 176 ms QT Int : 468 ms P-R-T Axes : 000 250 070 degrees QTc Int : 490 ms Ventricular-paced rhythm Abnormal ECG When compared with ECG of 21-DEC-2017 00:30, Vent. rate has decreased BY 3 BPM Unconfirmed Result
--- NOTE | 2018-09-21 18:13 | PROVIDER DOCUMENTATION ---
This chart was entered by Jodi Sage Scribe, acting as scribe for Joselo Odonnell MD. HPI-General Adult - General Chief Complaint: B/P Problems Stated Complaint: BP LOW Time Seen by Provider: 09/21/18 16:45 Source: patient, family Allergies/Adverse Reactions: Patient Allergies Allergy/AdvReac Type Severity Reaction Status Date / Time No Known Allergies Allergy Verified 12/20/17 23:04 Home Medications: Home Medication List Medication Instructions Recorded Confirmed Last Taken Type Digoxin 125 mcg PO EVERY OTHER DAY 09/07/15 09/21/18 12/20/17 History Spironolactone [Aldactone] 25 mg PO DAILY #30 tablet 09/13/15 09/21/18 12/20/17 Rx Fenofibrate 160 mg PO DAILY 09/15/15 09/21/18 12/20/17 History Potassium Chloride 10 meq PO DAILY 09/15/15 09/21/18 12/20/17 History Iron Carbonyl/Ascorbic Acid 1 each PO BID #60 tablet 09/25/15 09/21/18 12/20/17 Rx [Icar-C] Finasteride [Proscar] 5 mg PO DAILY #30 tablet 10/09/15 09/21/18 12/20/17 Rx Multivitamin [Multivitamins] 1 each PO DAILY 01/12/17 09/21/18 12/20/17 History Lisinopril [Zestril] 20 mg PO DAILY 03/28/17 09/21/18 12/20/17 History Pyridostigmine [place] 60 mg PO TID 04/12/17 09/21/18 12/20/17 History Amlodipine [Norvasc] 10 mg PO DAILY 09/21/18 09/21/18 Unknown History Cyanocobalamin (Vitamin B-12) 1,000 mcg PO DAILY 09/21/18 09/21/18 Unknown Histo ry [Vitamin B12] Levothyroxine Sodium 175 mcg PO DAILY 09/21/18 09/21/18 Unknown History - History of Present Illness -Gen Adult Nature of Presenting Problems: 77 yowm presents w/ w/cc polyuria, weak, possible dehydration and poor appetite w/10 lb weight loss in 1 wk. pt sts he has hx of dm, taking meds regularly for dm and fsbs has been good. pt sts pt has cirrosis due to meds he's on. pt has been outside more recently but has been staying hydrated and drinks plenty of water. pt also has hx of mystema gravitis, vitilligo, pacemaker, high cholesterol, htn and sleep apnea. pt does not wear cpap regularly. pt followed by Dr. matias. pt rx aldactone, lasix, mesatonin and many diuretics. pt rpts pt going to pcp monday. Review of Systems - Adult - REVIEW OF SYSTEMS - ADULT Constitutional: reports: see HPI, other (weakness, poss dehydration). denies: chills, fever Eyes: reports: no symptoms reported Ears, Nose, Mouth & Throat: reports: no symptoms reported. denies: hoarseness, throat pain, throat swelling Cardiovascular: reports: no symptoms reported Respiratory: reports: no symptoms reported Gastrointestinal: reports: see HPI, poor appetite. denies: diarrhea, nausea, vomiting Genitourinary: reports: no symptoms reported Musculoskeletal: reports: no symptoms reported Integumentary: reports: no symptoms reported Neurological: reports: no symptoms reported Psychiatric: reports: no symptoms reported Endocrine: reports: see HPI, increased thirst, polyuria. denies: change in skin pigment, excessive sweating, increased hunger Hematologic/Lymphatic: reports: no symptoms reported Allergic/Immunologic: reports: no symptoms reported All Other Systems: Reviewed and Negative Past History - Adult - PAST MEDICAL HISTORY-ADULT Review of Records: reports: Old Records Reviewed, Nursing Assessment Review, Medications Reviewed, Social history reviewed & non-contributory. Major Childhood Illnesses: reports: denies history Cardiovascular: reports: A-Fib, CAD, HTN, pacemaker Respiratory: reports: sleep apnea Gastrointestinal: reports: liver disease (cirrosis) Obstetrical/Gynecological: reports: denies history Genitourinary: reports: chronic UTI's Musculoskeletal: reports: denies history Neurological: reports: CVA, TIA, other (myasthenia gravis) Psychiatric: reports: depression Endocrine/Immune: reports: Diabetes, thyroid disorder Other Conditions: reports: denies history - PRIOR SURGERIES/PROCEDURES Surgical/Procedure History: reports: appendectomy, cardiac stent, pacemaker, tonsillectomy, hernia repair - IMMUNIZATION STATUS Childhood Immunizations: See Nurse Assessment Flu Vaccine: See Nurse Assessment - FAMILY HISTORY Family History: reviewed, not pertinent - SOCIAL HISTORY Smoking: other (former smoker) Substance Use: alcohol Alcohol Use Frequency: every day (glass wine) Physical Exam-General - PHYSICAL EXAM-ADULT Initial Vital Signs Reviewed: Yes - CONSTITUTIONAL General Appearance: appears well, alert, no apparent distress. negative: slow to respond, obtunded, combative - EYES Eyes: PERRL/EOMI, pink conjunctivae - HEAD, EARS, NOSE, MOUTH & THROAT HENMT: normocephalic/atraumatic, normal ENT inspection. negative: moist mucous membranes (minimal dry mucous membranes) - NECK Neck: non-tender, full range of motion, supple, normal inspection - RESPIRATORY Respiratory: chest non-tender, lungs clear, normal breath sounds - CARDIOVASCULAR Cardiovascular: normal peripheral pulses, regular rate, rhythm - GASTROINTESTINAL (ABDOMEN) Abdominal Exam: normal bowel sounds, non tender, soft - LYMPHATIC Lymphatic: no adenopathy - MUSCULOSKELETAL Back Exam: normal inspection, no CVA tenderness, no vertebral tenderness Extremity: normal range of motion, non-tender, normal inspection Peripheral Pulses: radial (R): 2+, radial (L): 2+ - SKIN Integumentary: normal color, normal turgor, warm/dry, other (pt has vitiligo on bilat upper ext and bilat lower ext.). negative: blanching, diaphoresis, ecchymosis - NEUROLOGIC Neurologic: grossly normal, no motor/sensory deficits - PSYCHIATRIC Psych/Mental Status: normal mood/affect, normal thought content, normal thought process, oriented x 3 Progress - PLAN OF CARE/RESULTS Progress/Plan/Lab Results: Laboratory Results - last 24 hr 09/21/18 09/21/18 09/21/18 15:18 15:18 15:18 WBC 10.65 RBC 5.27 Hgb 16.4 Hct 47.6 MCV 90.3 MCH 31.1 H MCHC 34.5 RDW Std Deviation 14.3 Plt Count 143 MPV 10.4 Immature Gran % (Auto) 0.7 H Neut % (Auto) 70.9 Lymph % (Auto) 19.2 L [place] % (Auto) 7.5 Eos % (Auto) 1.3 Baso % (Auto) 0.4 Immature Gran # (Auto) 0.07 H Neut # (Auto) 7.56 H Lymph # (Auto) 2.04 [place] # (Auto) 0.80 H Eos # (Auto) 0.14 Baso # (Auto) 0.04 D-Dimer, Quantitative Sodium 138 Potassium 5.6 H Chloride 105 Carbon Dioxide 23 L Anion Gap 10 BUN 51 H Creatinine 2.0 H Estimated GFR/1.73 m2 32 BUN/Creatinine Ratio 26 Glucose 138 H Calculated Osmolality 292 Calcium 9.7 Total Bilirubin 1.10 H AST 29 ALT 34 Alkaline Phosphatase 70 Total Protein 7.2 Albumin 4.2 Globulin 3.0 Albumin/Globulin Ratio 1.0 TSH 0.71 09/21/18 15:18 WBC RBC Hgb Hct MCV MCH MCHC RDW Std Deviation Plt Count MPV Immature Gran % (Auto) Neut % (Auto) Lymph % (Auto) [place] % (Auto) Eos % (Auto) Baso % (Auto) Immature Gran # (Auto) Neut # (Auto) Lymph # (Auto) [place] # (Auto) Eos # (Auto) Baso # (Auto) D-Dimer, Quantitative 0.52 Sodium Potassium Chloride Carbon Dioxide Anion Gap BUN Creatinine Estimated GFR/1.73 m2 BUN/Creatinine Ratio Glucose Calculated Osmolality Calcium Total Bilirubin AST ALT Alkaline Phosphatase Total Protein Albumin Globulin Albumin/Globulin Ratio TSH Orders Category Date Time Status Cardiac Monitoring DIRECTED Care 09/21/18 16:29 Active Nursing- Obtain EKG ONCE Care 09/21/18 14:19 Active FLAT/UPRIGHT ABD/1 VIEW CHEST [RAD] Stat Exams 09/21/18 14:19 Completed CBC WITH DIFF [HEME] Stat Lab 09/21/18 15:18 Completed CK TOTAL [CHEM] Stat Lab 09/21/18 16:29 Received COMPREHENSIVE METABOLIC PANEL [CHEM] Stat Lab 09/21/18 15:18 Completed D-DIMER [COAG] Stat Lab 09/21/18 15:18 Completed PRO B-NATRIURETIC PEPTIDE Stat Lab 09/21/18 15:18 Received TROPONIN T Stat Lab 09/21/18 15:18 Received TSH Stat Lab 09/21/18 15:18 Completed EKG [EKG] Stat Ther 09/21/18 14:19 Ordered Result Diagrams: 09/21/18 15:18 09/21/18 15:18 - EKG 1 Time of EKG reading by physician:: 16:32 EKG Read and Signed by:: Joselo Odonnell EKG Interpretation (*Must complete 3 of following elements*): Abnormal Rate: 66 Rhythm: Ventricular paced rhythm [place]: normal QRS: normal Departure - Departure Date of Disposition Decision: 09/21/18 Time of Disposition Decision: 18:10 DIAGNOSIS: Frequent falls, Weakness, Dehydration Disposition: ADMITTED INPATIENT 09 Certified Medical Emergency: Emergent Condition: Stable Referrals and Follow-Ups: Danish Matias DO [Primary Care Provider] - - Critical Care Note This patient required my direct & personal management of CC.: No Attestation - Physician/ ROLAN Attestation Patient care was provided by Advanced Practice Provider:: No The physician spent face to face time with patient:: Yes Advanced Practice Provider documentation review:: Supervising physician onsite and consulted in the evaluation and care of this patient. The physician did have a face to face encounter with the patient. This chart was documented by the indicated scribe, (Jodi Sage Scribe) and accurately reflects the services I performed and decisions made by me, Joselo Odonnell MD, as attested by the provider's signature.
[2018-09-21] MEDS: ICAR-C PO SCH (20:45)
[2018-09-21] MEDS: HUMULIN N INSULIN (PARKWAY) SUBQ SCH (22:56)
--- NOTE | 2018-09-22 03:42 | HISTORY AND PHYSICAL ---
CHIEF COMPLAINT: Hypotension. HISTORY OF PRESENT ILLNESS: Patient is a 77-year-old male who presented to the hospital noting that over the past week or so he has felt as though he has had weight loss upwards to 10 pounds. He has been drinking all the time. Notes that his he has been urinating all the time. States he checked his blood sugar and it has been fine. Denies any alcohol during this time. Notes he does have a history of diabetes, takes his medications regularly. notes that he has cirrhosis from medications that he has been on in the past, but she is unsure of which. States he has been trying to go outside to do yard work and goes outside and drinks fluids and then comes inside and urinates. Notes he has been more tired and fatigued. Does have a history of myasthenia gravis. Has a pacemaker. PAST MEDICAL HISTORY: Diabetes, vitiligo, cardiac dysrhythmia requiring pacemaker, high cholesterol, hypertension, sleep apnea although does not wear CPAP with any regularity. He has had a history of atrial fibrillation, coronary artery disease. Positive for cirrhosis, frequent UTIs. He has had a stroke in the past. History of depression, anxiety, hypothyroidism. SURGICAL HISTORY: Appendectomy, cardiac stenting, pacemaker, tonsillectomy, hernia repair. FAMILY HISTORY: Noncontributory. SOCIAL HISTORY: He is a former smoker. He does drink alcohol. Drinks approximately a glass of wine every day and has so for years. Denies any other illicit substances. REVIEW OF SYSTEMS: Has been tired, fatigued. Has had polyuria, polydipsia, weight loss. Is unsure of what his blood sugars have been, but notes that they have been normal. Denies any current chest pain, palpitations. Denies any fevers or chills. Denies any current urinary dysfunction with dysuria, urinary frequency, urgency. Denies hematuria, but does note that he has polyuria. Denies melena, hematochezia, diarrhea, constipation. Denies skin rashes. States that he has lost weight without trying. ALLERGIES: No known drug allergies. MEDICATIONS: Digoxin 125 every other day, Aldactone 25, fenofibrate, Icar C, Proscar 5, lisinopril 20, Norvasc, Mestinon, Synthroid 175. PHYSICAL EXAMINATION: VITAL SIGNS: Reviewed. He is afebrile. Pulse is regular in the 80s, respiratory rate 20, blood pressure improving. ASSESSMENT: 1. Hyperkalemia. Potassium at 5.6. 2. Acute renal failure. Creatinine at 2.0. 3. Elevated D-dimer at 0.5. 4. Diabetes. 5. Hypothyroidism. 6. Frequent falls. 7. Generalized weakness. 8. Volume depletion with hemoconcentration with a hemoglobin and hematocrit of 16 and 47. BUN elevated at 51. 9. Known coronary artery disease. 10. High cholesterol. 11. History of cirrhosis. PLAN: We will admit patient to the hospital. IV fluids. Restart his home medication and we will follow. cc: Sky Holly MD
[2018-09-22] MEDS: SYNTHROID PO SCH ×4 (05:57→06:30)
[2018-09-22 07:07] LABS: HEMATOCRIT 43.7 % (42.0-52.0); HEMOGLOBIN 14.6 g/dL (14.0-18.0); MCH 30.2 PG (27-31); MCHC 33.4 g/dL (33-37); MCV 90.5 FL (81-99); RBC 4.83 XMIL (4.7-6.1); RDW 13.9 % (11.5-14.5); WBC 6.77 X1000 (4.8-10.8)
[2018-09-22 07:31] LABS: ALBUMIN 3.7 g/dL (3.5-5.0); CALCIUM 8.6 mg/dL (8.8-10.2); CREATININE 1.5 mg/dL (0.7-1.2); MAGNESIUM 1.9 mg/dL (1.5-2.7); POTASSIUM 4.8 mmol/L (3.5-5.1); TOTAL BILIRUBIN 0.5 mg/dL (0.20-1.00); TOTAL PROTEIN 5.6 g/dL (6.3-8.3)
[2018-09-22] MEDS ORDERED: SYNTHROID PO SCH (09:00)
[2018-09-22] MEDS: HUMULIN N INSULIN (PARKWAY) SUBQ SCH ×2 (09:31→22:01)
[2018-09-22] MEDS: ICAR-C PO SCH ×2 (09:34→22:02)
[2018-09-22] MEDS: PROSCAR PO SCH (09:34)
[2018-09-22] MEDS: THERA M PLUS PO SCH (09:34)
[2018-09-22] MEDS: ALDACTONE PO SCH (09:34)
[2018-09-22] MEDS: MESTINON PO SCH ×3 (10:04→17:04)
--- NOTE | 2018-09-22 20:58 | PROGRESS NOTE ---
DATE: 09/22/2018 SUBJECTIVE: The patient notes that he is feeling better. Denies any muscle aches. Denies any fevers or chills. PHYSICAL EXAM: Vital Signs: Temperature 97.6, pulse 65, respiratory rate 18, BP 119/79. General: Patient is awake, currently in no respiratory distress. Very pleasant to talk with. HEENT: Normocephalic. Neck: Supple. Cardiovascular: Regular rate. No murmurs. Chest: Clear, nonlabored. No wheezing. Abdomen: Soft, nontender. Extremities: Moves all extremities. No edema. Neurologic: No focal neurological changes. ASSESSMENT: 1. Hyperkalemia, improving. Potassium is currently 4.8. 2. Acute on chronic renal failure. BUN and creatinine both have improved. 3. Volume depletion, improved. 4. Elevated D-dimer. Ultrasound pending. Cannot perform a CTA, although he is having no hypoxic issues and no shortness of breath. 5. Diabetes. 6. Hypothyroidism. 7. Frequent falls. 8. Volume depletion. 9. Known coronary artery disease. PLAN: We will continue patient in the hospital. We will continue to hold his lisinopril, potassium, and Norvasc, as his blood pressures have been stable. We will restart his Aldactone due to his history of cirrhosis and fluid imbalance. We will continue to follow. Hopefully home over the next day or so. cc: Sky Holly MD
[2018-09-23] MEDS: SYNTHROID PO SCH ×2 (06:18)
[2018-09-23 07:19] VITALS: BP 118/78
[2018-09-23 08:52] LABS: CREATININE 1.2 mg/dL (0.7-1.2)
[2018-09-23] MEDS ORDERED: LANOXIN PO SCH (09:00)
[2018-09-23] MEDS: MESTINON PO SCH ×2 (09:18→12:46)
[2018-09-23] MEDS: THERA M PLUS PO SCH (09:18)
[2018-09-23] MEDS: ALDACTONE PO SCH (09:18)
[2018-09-23] MEDS: ICAR-C PO SCH (09:18)
[2018-09-23] MEDS: PROSCAR PO SCH (09:18)
[2018-09-23] MEDS: HUMULIN N INSULIN (PARKWAY) SUBQ SCH (11:15)
--- NOTE | 2018-09-24 05:05 | DISCHARGE SUMMARY ---
ADMISSION DATE: 09/21/2018 DISCHARGE DATE: 09/23/2018 PRIMARY CARE PROVIDER: Dr. Danish Matias. ADMISSION DIAGNOSES: 1. Hyperkalemia, resolved. 2. Acute renal failure- resolved 3. Diabetes- medical management. 4. frequent falls, 5. weakness 6. dehydration- resolved. PROCEDURES AND FINDINGS: This is a 77-year-old male who presented to the hospital noting over the past week he had a weight loss of upwards of 10 pounds and had been drinking all the time. He notes that he had been frequently urinating. He states that he had checked his blood sugar, and it has been fine. Denies alcohol use. He does have a history of diabetes and takes medication regularly. He was going outside to do yard work in the heat, and has been more tired and fatigued. He also has history of myasthenia gravis and pacemaker. HOSPITAL COURSE OF THERAPY: The patient was admitted to [facility], and had activity up with assistance.SCD's applied and DVT prophylaxis, Accu-Cheks. I Os and vital signs q4h. telemetry, regular diet. The patient is ordered to have a venous ultrasound of bilateral lower extremities that will be completed as an outpatient. The patient was placed on insulin, digoxin, Proscar, NPH, iron, levothyroxine a total of 175 mcg, multivitamin, and was rehydrated per IV. LABORATORY: WBC of 10.65, hemoglobin and hematocrit of 16.4 and 47.6. D-dimer was 0.52. Sodium of initially 138, now 140, potassium 5.6 initially, now 4.8. BUN of 51, and subsequently 41 and 37. Creatinine initially at 2.0, now 1.2 upon discharge. Magnesium of 1.9. The patient's glucose is initially 138 and now 121. Reports showed an abdominal x-ray with no acute evidence of cardiopulmonary disease, evidence of some constipation, nonspecific nonobstructive bowel gas pattern otherwise. EKG showed a ventricular paced rhythm with a rate of 66 beats per minute. The patient had lisinopril, potassium and Norvasc held. Blood pressures were all stable for the course of the hospital stay. Aldactone resumed. Pulse ox 97% on RA. DISCHARGE MEDICATIONS: The patient will have digoxin 125 mcg p.o. every other day, finasteride 5 mg p.o. daily, iron 1 p.o. b.i.d., multivitamin 1 p.o. daily, pyridostigmine bromide 60 mg p.o. daily, spironolactone 25 mg p.o. daily, Norvasc 5 mg p.o. daily, vitamin B12 1000 mcg p.o. daily, fenofibrate 160 mg p.o. daily, and levothyroxine 175 mcg p.o. daily. The patient's lisinopril was held and Norvasc was halved. DISCHARGE INSTRUCTIONS: Activity as tolerated with a regular/regular diet. Discharge to self- care at home. The patient is to follow up with Dr. Matias, and has an appointment scheduled for Monday. will obtain venous dopplers as outpatient. The patient encouraged to call PCP for any questions. All discharge instructions were reviewed with the patient, and verbalized understanding. Dictated by MYESHA Barrientos for Sky Holly MD cc: MD Danish Lang DO [facility]LANDStuart
--- NOTE | 2018-09-24 05:22 | DISCHARGE SUMMARY ---
ADMISSION DATE: 09/21/2018 DISCHARGE DATE: 09/23/2018 ADDENDUM: Patient seen and examined by myself. His blood pressures have improved. His creatinine has improved from a BUN 51, creatinine at 2, to a BUN at 30 and a creatinine of 1.2. He is awake, alert. He is in no distress. We will discharge him home. Discussed with him that he will continue to hold his lisinopril and potassium which I believe has certainly contributed to his elevated potassium levels. He will continue Aldactone but can take this only as needed. We will also restart Norvasc instead of 10 mg restarted at 5 mg. He will follow up outpatient with his primary care. cc: Sky Holly MD
== END 2018-09-23 13:34 | disposition home or self-care (01) | DRG 684 ==
LOC: P.ED 13:41 → P.MEDSURG 20:26
PROVIDERS: ATTEND Family Medicine
CPT/HCPCS: 74022; 80053; 82550; 82565; 82948; 83735; 83880; 84443; 84484; 84520; 85025; 85027; 85379; 93005; 93970; A9270; J1815; J7030; S0138; XXXXX